=== PATIENT | male | born 1960 | race Two or more races ===

== ENCOUNTER 2020-06-27 08:37 | Outpatient (REF) | payer BC, SELFPAY ==
--- NOTE | 2020-06-27 08:52 | XR_ITS ---
EXAMINATION: XR KNEES, STANDING AP XR KNEE, RIGHT CLINICAL INFORMATION: Unilateral primary osteoarthritis, right knee COMPARISON: Radiographs right knee 11/08/2018 TECHNIQUE: Standing AP view of both knees is performed along with lateral and axial patella views of the right knee. FINDINGS: The right knee again shows narrowing medial knee joint compartment with marginal osteophyte medial tibial plateau. The axial view shows no patellofemoral joint narrowing or erosive change. There is no suprapatellar effusion. Hoffa's fat pad appears normal. There is spurring at the quadriceps insertion patella and some chronic mineralization in region of proximal lateral collateral ligament, likely related to remote injury. The left knee shows no definite joint narrowing. There is no erosive change or chondrocalcinosis. There is a small borderline benign exostosis from the medial side diaphyseal metaphyseal junction distal left femur. XR/XR knee standing BI IMPRESSION: RIGHT: Mild narrowing medial knee joint compartment and marginal spurring. No effusion. Spurring at quadriceps insertion patella. Benign mineralization in region of proximal lateral collateral ligament, likely old injury. LEFT: No joint narrowing.
--- NOTE | 2020-06-27 08:52 | XR_ITS ---
EXAMINATION: XR KNEES, STANDING AP XR KNEE, RIGHT CLINICAL INFORMATION: Unilateral primary osteoarthritis, right knee COMPARISON: Radiographs right knee 11/08/2018 TECHNIQUE: Standing AP view of both knees is performed along with lateral and axial patella views of the right knee. FINDINGS: The right knee again shows narrowing medial knee joint compartment with marginal osteophyte medial tibial plateau. The axial view shows no patellofemoral joint narrowing or erosive change. There is no suprapatellar effusion. Hoffa's fat pad appears normal. There is spurring at the quadriceps insertion patella and some chronic mineralization in region of proximal lateral collateral ligament, likely related to remote injury. The left knee shows no definite joint narrowing. There is no erosive change or chondrocalcinosis. There is a small borderline benign exostosis from the medial side diaphyseal metaphyseal junction distal left femur. XR/XR knee RT 2V IMPRESSION: RIGHT: Mild narrowing medial knee joint compartment and marginal spurring. No effusion. Spurring at quadriceps insertion patella. Benign mineralization in region of proximal lateral collateral ligament, likely old injury. LEFT: No joint narrowing.
== END 2020-06-27 08:38 | disposition home or self-care (01) ==
LOC: HO.XRAY 08:37
PROVIDERS: PCP Internal Medicine; Referring Provider Internal Medicine; Visit Provider Orthopaedic Surgery
DX: M17.11 Unilateral primary osteoarthritis, right knee (principal)
CPT/HCPCS: 73560; 73565

== ENCOUNTER 2020-06-27 09:51 | Outpatient (REF) | payer BC, SELFPAY ==
[2020-06-27 10:48] LABS: Estimated Average Glucose 169 mg/dL; Hemoglobin A1c % 7.5 %
== END 2020-06-27 09:52 | disposition home or self-care (01) ==
LOC: HO.10HDL 09:51
PROVIDERS: Visit Provider Orthopaedic Surgery
DX: Z01.812 Encounter for preprocedural laboratory examination (principal)
CPT/HCPCS: 83036

== ENCOUNTER 2020-07-01 09:46 | Outpatient (REF) | payer BC, SELFPAY ==
[2020-07-01 10:49] LABS: MANUAL DIFF FLAG NO
[2020-07-01 10:52] LABS: Basophils Percent Auto 0.7 % (0-2); Eosinophils Absolute Auto 0.2 X10*3/uL (0.0-0.4); Eosinophils Percent Auto 3.6 % (0-4); Hematocrit 43.6 % (42-52); Hemoglobin 14.1 g/dl (14.0-18.0); Imm Gran Abs Auto 0.03 X10*3/uL (0.00-0.03); Imm Gran Pct Auto 0.5 % (0.0-0.4); Lymphocytes Absolute Auto 1.9 X10*3/uL (1.2-4.9); Lymphocytes Percent Auto 32.9 % (20-40); Mean Corpuscular HGB Conc 32.3 g/dl (31.0-36.0); Mean Corpuscular Hemoglobin 26.6 pg (27.0-33.0); Mean Corpuscular Volume 82.1 fL (80-98); Mean Platelet Volume 11.2 fL (9.4-12.4); Monocytes Absolute Auto 0.5 X10*3/uL (0.1-1.2); Monocytes Percent Auto 7.6 % (2-11); Neutrophils Absolute Auto 3.2 X10*3/uL (2.0-8.3); Neutrophils Percent Auto 54.7 % (45-73); Platelet Count 221 X10*3/uL (160-400); Red Blood Count 5.31 X10*6/uL (4.60-5.80); Red Cell Distribution Width 14.1 % (11.0-16.0); White Blood Count 5.9 X10*3/uL (4.8-10.8)
[2020-07-01 11:00] LABS: Glucose Urine UA NEG (NEG); Leukocyte Esterase Urine NEG (NEG); Nitrite Urine NEG (NEG); Specific Gravity - Urine >= 1.030 (1.005-1.025); Urine Blood TRACE (NEG); Urine Ketones NEG (NEG); Urine Protein 2+ MG/DL (NEG-TRACE)
[2020-07-01 11:03] LABS: Appearance Urine CLEAR; Color Urine YELLOW
[2020-07-01 11:16] LABS: Estimated Average Glucose 166 mg/dL; Hemoglobin A1c % 7.4 %
[2020-07-01 12:02] LABS: TSH reflex Free T4 1.22 mIU/mL (0.32-4.0); Vitamin D 25-OH Total 38.4 ng/mL (>30)
[2020-07-01 12:03] LABS: RBC Urine 0 /HPF (0); Squamous Epithelial Cell Urine TRACE /LPF; WBC Urine 0-2 /HPF (0-4)
[2020-07-01 12:26] LABS: Alanine Aminotransferase 31 U/L (0-40); Albumin Level 4.3 g/dL (3.5-5.0); Alkaline Phosphatase 57 U/L (39-117); Anion Gap 14 (12-20); Aspartate Amino Transferase 15 U/L (5-37); Bilirubin Total 0.5 mg/dL (0.0-1.0); Blood Urea Nitrogen 20 mg/dL (9-16); Calcium 9.1 mg/dL (8.4-10.2); Carbon Dioxide 25 mmol/L (22-29); Chloride 106 mmol/L (96-108); Cholesterol 130 mg/dL; Estimated Glomerular Filt Rate > 60; Glucose Fasting 170 mg/dL (60-99); HDL Cholesterol 33 mg/dL; LDL Cholesterol Calculated 80 mg/dl; Potassium 4.7 mmol/l (3.3-5.1); Sodium 140 mmol/L (135-145); Total Protein 6.6 g/dL (6.5-8.0); Triglycerides 85 mg/dL
== END 2020-07-01 09:47 | disposition home or self-care (01) ==
LOC: HO.LAB 09:46
PROVIDERS: Visit Provider Internal Medicine
DX: E11.22 Type 2 diabetes mellitus with diabetic chronic kidney disease (principal); I12.9 Hypertensive chronic kidney disease with stage 1 through stage 4 chronic kidney disease, or unspecified chronic kidney disease; N18.2 Chronic kidney disease, stage 2 (mild); E78.5 Hyperlipidemia, unspecified; K21.9 Gastro-esophageal reflux disease without esophagitis; E55.9 Vitamin D deficiency, unspecified; E66.9 Obesity, unspecified
CPT/HCPCS: 36415; 80053; 80061; 81001; 81003; 82306; 83036; 84443; 85025

== ENCOUNTER → 2020-07-15 09:06 | Outpatient (BNVA) | payer BC, SELFPAY | PROVIDERS: PCP Internal Medicine; Referring Provider Internal Medicine; Visit Provider Internal Medicine Endocrinology, Diabetes & Metabolism | DX: Z76.89 Persons encountering health services in other specified circumstances (principal) ==

== ENCOUNTER → 2020-08-07 08:41 | Outpatient (BNVA) | payer BC, SELFPAY | PROVIDERS: PCP Internal Medicine; Visit Provider Orthopaedic Surgery | DX: Z76.89 Persons encountering health services in other specified circumstances (principal) ==

== ENCOUNTER 2020-08-15 08:37 | Outpatient (REF) | payer BC, SELFPAY ==
--- NOTE | 2020-08-15 08:49 | ECG_ITS ---
Test Reason : PREOP Blood Pressure : / mmHG Vent. Rate : 095 BPM Atrial Rate : 095 BPM P-R Int : 140 ms QRS Dur : 150 ms QT Int : 390 ms P-R-T Axes : 038 -84 033 degrees QTc Int : 490 ms Normal sinus rhythm Right bundle branch block Left anterior fascicular block Bifascicular block Abnormal ECG When compared with ECG of 02-NOV-2017 20:06, No significant change was found Referred By: Kenney Varela Electronically Signed By:DIAMOND HOLLAND
[2020-08-15 09:33] LABS: MANUAL DIFF FLAG NO
[2020-08-15 09:56] LABS: Basophils Absolute Auto 0.1 X10*3/uL (0.0-0.2); Basophils Percent Auto 0.7 % (0-2); Eosinophils Absolute Auto 0.2 X10*3/uL (0.0-0.4); Hematocrit 45.2 % (42-52); Hemoglobin 14.2 g/dl (14.0-18.0); Imm Gran Abs Auto 0.01 X10*3/uL (0.00-0.03); Imm Gran Pct Auto 0.1 % (0.0-0.4); Lymphocytes Absolute Auto 2.3 X10*3/uL (1.2-4.9); Lymphocytes Percent Auto 34.2 % (20-40); Mean Corpuscular HGB Conc 31.4 g/dl (31.0-36.0); Mean Corpuscular Hemoglobin 25.4 pg (27.0-33.0); Mean Platelet Volume 10.8 fL (9.4-12.4); Monocytes Absolute Auto 0.5 X10*3/uL (0.1-1.2); Monocytes Percent Auto 7.4 % (2-11); Neutrophils Absolute Auto 3.7 X10*3/uL (2.0-8.3); Neutrophils Percent Auto 54.6 % (45-73); Platelet Count 244 X10*3/uL (160-400); Red Blood Count 5.58 X10*6/uL (4.60-5.80); Red Cell Distribution Width 14.1 % (11.0-16.0); White Blood Count 6.8 X10*3/uL (4.8-10.8)
[2020-08-15 10:20] LABS: Estimated Average Glucose 163 mg/dL; Hemoglobin A1c % 7.3 %
[2020-08-15 10:41] LABS: Anion Gap 16 (12-20); Blood Urea Nitrogen 21 mg/dL (9-16); Carbon Dioxide 27 mmol/L (22-29); Chloride 100 mmol/L (96-108); Estimated Glomerular Filt Rate 56; Glucose Random 139 mg/dL (60-115); Potassium 4.6 mmol/l (3.3-5.1); Sodium 138 mmol/L (135-145)
== END 2020-08-15 08:38 | disposition home or self-care (01) ==
LOC: HO.LAB 08:37
PROVIDERS: PCP Internal Medicine; Visit Provider Orthopaedic Surgery
DX: Z01.812 Encounter for preprocedural laboratory examination (principal)
CPT/HCPCS: 36415; 80048; 83036; 85025; 93005

== ENCOUNTER 2020-08-19 15:06 | Outpatient (REF) | payer BC, SELFPAY | END 2020-08-19 15:07 | disposition home or self-care (01) | LOC: HO.LAB 15:06 | PROVIDERS: Physician Assistant; Visit Provider Internal Medicine | DX: Z20.828 Contact with and (suspected) exposure to other viral communicable diseases (principal) | CPT/HCPCS: U0003 ==

== ENCOUNTER 2020-08-23 14:56 | Outpatient (REF) | payer BC, SELFPAY | END 2020-08-23 14:57 | disposition home or self-care (01) | LOC: HO.LAB 14:56 | PROVIDERS: Visit Provider Internal Medicine | DX: Z20.828 Contact with and (suspected) exposure to other viral communicable diseases (principal) | CPT/HCPCS: C9803; U0003 ==

== ENCOUNTER 2020-08-28 14:09 | Outpatient (REF) | payer BC, SELFPAY | END 2020-08-28 14:10 | disposition home or self-care (01) | LOC: HO.LAB 14:09 | PROVIDERS: PCP Internal Medicine; Visit Provider Physician Assistant | DX: Z01.812 Encounter for preprocedural laboratory examination (principal) ==

== ENCOUNTER 2020-09-10 08:27 | Inpatient (IN) | payer BC, SELFPAY ==
[2020-09-05 11:45] VITALS: BP 158/86; PULSE 93; RESP 20; O2SAT 96; BMI 36.1
--- NOTE | 2020-09-05 12:34 | HO.ANESPROP2 ---
Documented by User: Bg Mendez MD 09/10/20 12:14 HPI - Anesthesia Eval Consult details Narrative: 59 M for Right TKR PMFSH Past Medical History Medical History Arthritis Back pain Benign essential hypertension Cardiovascular disease Chronic kidney disease (CKD), stage II (mild) Depression Diabetes type 2, controlled Diabetes type 2, uncontrolled Diabetic nephropathy Diabetic nephropathy associated with type 2 diabetes mellitus Diabetic polyneuropathy associated with type 2 diabetes mellitus Essential hypertension GERD without esophagitis Internal derangement of knee Lab test negative for COVID-19 virus Labral tear of hip, degenerative USP (current) use of insulin Lumbar spondylosis Neck pain Obesity (BMI 30-39.9) Primary osteoarthritis of right knee Primary osteoarthritis of right knee Pure hypercholesterolemia Rectal bleed Type 2 diabetes mellitus with diabetic chronic kidney disease Vitamin D deficiency Family History Family History Father Diabetes Hypertension Heart disease Mother Diabetes Surgical History Surgical History H/O colonoscopy History of appendectomy History of cardiac cath History of cholecystectomy History of esophagogastroduodenoscopy (EGD) History of fasciotomy Hx of foot surgery S/P right knee arthroscopy S/P TURP (~2015) Social History Social History Are you a primary palliative care physician to a significant other at home: No Do you presently have visiting nurse or other home services: No Alcohol intake: current Alcohol intake frequency: does not drink Smoking Status: Former smoker Tobacco Type: Cigarette Smoked in Last 30 Days: No Smoking Quit Date: 2011 Use of substances other than those prescribed or required for medical reasons: No Have you been hit, kicked, punched, or otherwise hurt by someone within the past year? 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 Allergy/AdvReac Type Severity Reaction Status Date / Time albiglutide [From TANZEUM] Allergy Intermediate NAUSEA & Verified 09/05/20 12:13 VOMITING, ABD PAIN Sulfa (Sulfonamide Allergy Intermediate RASH, Verified 09/05/20 12:13 Antibiotics) hives,shortness of breath empagliflozin AdvReac Intermediate abdominal Verified 08/28/20 14:13 [From Jardiance] pain Home Medications Medication Instructions Recorded Confirmed Type gabapentin 300 mg capsule 300 mg PO DAILY 06/25/20 09/05/20 History omeprazole 20 mg capsule,delayed 20 mg PO DAILY 06/25/20 09/05/20 History release blood sugar diagnostic #10 ea 07/10/20 08/19/20 History sumatriptan succinate 50 mg tablet 50 mg PO DAILY PRN 08/19/20 09/05/20 History Exam Exam Date and Time: September 05, 2020 1234 Height,Weight and Vital Signs: Height 5 ft 6 in Weight 101.4 kg Last Vital Signs Pulse 93 09/05/20 11:45 Resp 20 09/05/20 11:45 BP 158/86 H 09/05/20 11:45 Pulse Ox 96 09/05/20 11:45 Pertinent Lab Results Pertinent Lab Results: Laboratory Tests 08/28/20 14:55 Blood Type A Negative Antibody Screen NEGATIVE Airway Mallampati Class: I TM Dist: >3cm Neck ROM: Full Loose/Missing/Broken Teeth: No Heart: RRR Lungs: NL Other: AO Assessment and Plan Assessment Anesthesia Assessment: Anesthesia Plan Discussed, PAT Visit and Chart Reviewed Final Anesthetic Review NPO: Yes ASA Class: III Final Preanesthetic Review: No Changes in Pt Med Stat, Meds/Allgs Chart Reviewed, Consent Obtained/Reviewed and Anes Risks/Benef Reviewed Patient Risk: Intermediate Procedure Risk: Intermediate Anesthetic Plan Anesthetic Plan: MAC:, Spinal and Regional Block Disposition: Standard PACU Documented by User: Renetta Cadet 09/09/20 11:14 [facility] Past Medical History Medical History Arthritis Back pain Benign essential hypertension Cardiovascular disease Chronic kidney disease (CKD), stage II (mild) Depression Diabetes type 2, controlled Diabetes type 2, uncontrolled Diabetic nephropathy Diabetic nephropathy associated with type 2 diabetes mellitus Diabetic polyneuropathy associated with type 2 diabetes mellitus Essential hypertension GERD without esophagitis Internal derangement of knee Lab test negative for COVID-19 virus Labral tear of hip, degenerative USP (current) use of insulin Lumbar spondylosis Neck pain Obesity (BMI 30-39.9) Primary osteoarthritis of right knee Primary osteoarthritis of right knee Pure hypercholesterolemia Rectal bleed Type 2 diabetes mellitus with diabetic chronic kidney disease Vitamin D deficiency Family History Family History Father Diabetes Hypertension Heart disease Mother Diabetes Surgical History Surgical History H/O colonoscopy History of appendectomy History of cardiac cath History of cholecystectomy History of esophagogastroduodenoscopy (EGD) History of fasciotomy Hx of foot surgery S/P right knee arthroscopy S/P TURP (~2015) Social History Social History Are you a primary palliative care physician to a significant other at home: No Do you presently have visiting nurse or other home services: No Alcohol intake: current Alcohol intake frequency: does not drink Smoking Status: Former smoker Tobacco Type: Cigarette Smoked in Last 30 Days: No Smoking Quit Date: 2011 Use of substances other than those prescribed or required for medical reasons: No Have you been hit, kicked, punched, or otherwise hurt by someone within the past year? 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 Allergy/AdvReac Type Severity Reaction Status Date / Time albiglutide [From TANZEUM] Allergy Intermediate NAUSEA & Verified 09/05/20 12:13 VOMITING, ABD PAIN Sulfa (Sulfonamide Allergy Intermediate RASH, Verified 09/05/20 12:13 Antibiotics) hives,shortness of breath empagliflozin AdvReac Intermediate abdominal Verified 08/28/20 14:13 [From Jardiance] pain Home Medications Medication Instructions Recorded Confirmed Type gabapentin 300 mg capsule 300 mg PO DAILY 06/25/20 09/05/20 History omeprazole 20 mg capsule,delayed 20 mg PO DAILY 06/25/20 09/05/20 History release blood sugar diagnostic #10 ea 07/10/20 08/19/20 History sumatriptan succinate 50 mg tablet 50 mg PO DAILY PRN 08/19/20 09/05/20 History Exam Pertinent Lab Results Pertinent Lab Results: Laboratory Tests 08/15/20 08/15/20 08:55 08:55 WBC 6.8 Hgb 14.2 Hct 45.2 Plt Count 244 Sodium 138 Potassium 4.6 Chloride 100 Carbon Dioxide 27 BUN 21 H Creatinine 1.31
[2020-09-05 14:07] LABS: MRSA Nasal PCR NEGATIVE (Negative); SA Nasal PCR NEGATIVE (Negative)
[2020-09-10] VITALS (14 sets, daily range): BP systolic 98–152; BP diastolic 72–99; PULSE 76–107; RESP 12–20; TEMP 36.2–36.9; O2SAT 95–100
--- NOTE | 2020-09-10 07:39 | MHC.SHP ---
Pre-Procedural Eval Section A The patient is an INPATIENT: No Changes since office visit: Yes Patient answered all questions; No Cold of Flu in the past 2 weeks, No New Medical Problems and No Changes in Medication The History & Physical has been completed within 30 days and I have reviewed it.: Yes Section B Chief Complaint: Osteoarthritis of Right Knee Allergies: Allergies Allergy/AdvReac Type Severity Reaction Status Date / Time albiglutide [From TANZEUM] Allergy Intermediate NAUSEA & Verified 09/05/20 12:13 VOMITING, ABD PAIN Sulfa (Sulfonamide Allergy Intermediate RASH, Verified 09/05/20 12:13 Antibiotics) hives,shortness of breath empagliflozin AdvReac Intermediate abdominal Verified 08/28/20 14:13 [From Jardiance] pain Plan I have reviewed the history and physical and performed a pertinent physical examination on my patient. No changes have occurred unless specified.
[2020-09-10 09:48] LABS: COVID-19 Test Negative (Negative)
[2020-09-10 09:56] LABS: Glucose, Whole Blood 162 mg/dL (60-115)
[2020-09-10] MEDS: Lactated Ringers 1,000 ML 100 ML IVCONT (10:03)
[2020-09-10] MEDS: Gabapentin 600 MG TABLET PO (10:04)
[2020-09-10] MEDS: ceFAZolin Sodium/Dextrose,Iso 2 GM/50 ML PIGGYBACK IV ×2 (10:04→16:24)
--- NOTE | 2020-09-10 11:59 | P.BOP_ITS ---
Brief Operative Note Date of Service: 09/10/20 Pre-op diagnosis: right knee OA Post-op diagnosis: same Procedure: right TKA Implants: andrzej traithalon press fit a Surgeon: Kenney Varela MD Anesthesia: regional and spinal Furnace Converter: Nader Yadav Estimated blood loss (mL): 200 Tourniquet time (min): 0 IV fluids (mL): 1,400 Urine output (mL): 0 Pathology: other Condition: stable Disposition: PACU
--- NOTE | 2020-09-10 12:42 | OP_ITS ---
SURGEON: Kenney Varela MD INDICATIONS: This is a 59-year-old gentleman, who had arthroscopically identified osteoarthritis of the right knee, consented to undergo knee replacement. PREOPERATIVE DIAGNOSIS: Right knee osteoarthritis. POSTOPERATIVE DIAGNOSIS: Right knee osteoarthritis. PROCEDURE PERFORMED: Right total knee arthroplasty. ESTIMATED BLOOD LOSS: 200 mL. COMPLICATIONS: None known. ANESTHESIA: Spinal and regional. ASSISTANTS: CARLOS Moran. SPECIMENS: FLUIDS: 1400. PROCEDURE IN DETAIL: The patient was brought into the operating room, placed supine on the operative table and prepped and draped in standard sterile fashion. Time-out was called to identify proper site, proper procedure, proper surgeon. IV antibiotics per weight was administered. I began by making a midline incision down to the retinaculum. A medial parapatellar arthrotomy was performed and I everted the patella. Resected the fat pad, used [place]'s line to drill my intramedullary femoral guide and made my distal femoral cut in 5 degrees of valgus. I then sized a size 3 femur and made my anterior, posterior, and chamfer cuts. I then turned my attention to the tibia. A 2 mm of the medial side in line with the tibial crest. Of note, he had grade 3 and 4 changes scattered throughout the medial femoral condyle and the majority of the tibial plateau. I then made my tibial cut, protecting the posterior soft tissues and the PCL and trialed an extension block. I was happy with the extension and the stability. Therefore, I trialed a size 4 tibia. I was happy with the tracking, stability, and range, and the undersurface of the patella was then resurfaced, placing a 32A patella. The patella had grade 3 and 4 changes as well. Once this was done, I drilled my lug holes and prepared my tibial canal. I then irrigated copiously and after removing all extraneous soft tissue and both menisci, I placed my final tibial and femoral implants in standard fashion. I placed a bone plug in the femur prior to this. I then placed my tibia and trialed a 9 insert. I was happy with the 9. There was full range of motion came out through extension nicely. I then irrigated copiously, placed iodine and 1 g of local tranexamic acid and the layered closure was performed with mani on the skin. The patient was awakened from sedation and brought to recovery room in stable condition. There were no known complications. IMPLANTS: Junior Triathlon //9CR/32A. MD ARNOL Chapin/JODI / [id number]
--- NOTE | 2020-09-10 12:53 | XR_ITS ---
EXAMINATION: XR KNEE, RIGHT CLINICAL INFORMATION: Post knee replacement COMPARISON: Previous x-ray June 2020 TECHNIQUE: Two views of the right knee. FINDINGS: There is a new 3 component knee replacement in satisfactory position. Bone alignment is normal. No fracture or dislocation is seen. There is soft tissue calcification or ossification adjacent to the lateral femoral condyle and probable posttraumatic change that is unchanged from preoperative exams. There are postoperative changes to the soft tissues. There is evidence of mild atherosclerotic disease. XR/XR knee RT 2V IMPRESSION: Satisfactory appearance of right knee replacement.
[2020-09-10] MEDS: Sodium Chloride 0.45 % 1,000 ML 80 ML IVCONT (15:37)
[2020-09-10] MEDS: HYDROmorphone HCl 0.5 MG/0.5 ML SYRINGE 0.25 MG IVPUSH ×3 (16:19→20:12)
[2020-09-10 16:43] LABS: Glucose, Whole Blood 100 mg/dL (60-115)
--- NOTE | 2020-09-10 16:50 | P.CONIM_ITS ---
History of Present Illness Data of Consult Service Date: 09/10/20 <Gita Larkin NP - Last Filed: 09/10/20 18:14> Requesting physician: Kenney Varela <Gita Larkin NP - Last Filed: 09/10/20 18:14> Primary Care Provider: Aman Jefferson MD <Gita Larkin NP - Last Filed: 09/10/20 18:14> HPI Reason for consult: Medical management <Gita Larkin NP - Last Filed: 09/10/20 18:14> 59-year-old man with history of diabetes, hypertension, hyperlipidemia status post right total knee arthroplasty. Admitted by Orthopedic surgery. Surgery was unremarkable. Vital signs are stable. Patient has no acute medical complaints at this time. <Gita Larkin NP - Last Filed: 09/10/20 18:14> Review of Systems Review of Systems: Denies any recent fever chills or decrease in appetite respiratory denies any shortness of breath coverage production cardiovascular is adjustment of any PND or edema gastrointestinal denies any dysphagia abdominal pain nausea vomiting or diarrhea genitourinary denies any dysuria frequency or hematuria musculoskeletal denies any joint pain or swelling neuropsych denies any weakness or seizures all other systems reviewed are negative <Gita Larkin NP - Last Filed: 09/10/20 18:14> [facility] Medical History: Medical History Arthritis Back pain Benign essential hypertension Cardiovascular disease Chronic kidney disease (CKD), stage II (mild) Depression Diabetic nephropathy associated with type 2 diabetes mellitus Diabetic polyneuropathy associated with type 2 diabetes mellitus Essential hypertension GERD without esophagitis Lumbar spondylosis Neck pain Obesity (BMI 30-39.9) Pure hypercholesterolemia Rectal bleed Vitamin D deficiency <Gita Larkin NP - Last Filed: 09/10/20 18:14> Family History: Family History Father Diabetes Hypertension Heart disease Mother Diabetes <Gita Larkin NP - Last Filed: 09/10/20 18:14> Surgical History: Surgical History H/O colonoscopy History of appendectomy History of cardiac cath History of cholecystectomy History of esophagogastroduodenoscopy (EGD) History of fasciotomy Hx of foot surgery S/P right knee arthroscopy S/P TURP (~2015) <Gita Larkin NP - Last Filed: 09/10/20 18:14> Social History: Social History Are you a primary plant care worker to a significant other at home: No Do you presently have visiting nurse or other home services: No Alcohol intake: current Alcohol intake frequency: does not drink Smoking Status: Former smoker Tobacco Type: Cigarette Smoked in Last 30 Days: No Smoking Quit Date: 2011 Use of substances other than those prescribed or required for medical reasons: No Currently Displaying Signs/Symptoms of Drug Intoxication Withdrawal: No Have you been hit, kicked, punched, or otherwise hurt by someone within the past year? 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 <Gita Larkin NP - Last Filed: 09/10/20 18:14> Meds Allergies/Adverse reactions: Allergies Allergy/AdvReac Type Severity Reaction Status Date / Time albiglutide [From TANZEUM] Allergy Intermediate NAUSEA & Verified 09/05/20 12:13 VOMITING, ABD PAIN Sulfa (Sulfonamide Allergy Intermediate RASH, Verified 09/05/20 12:13 Antibiotics) hives,shortness of breath empagliflozin AdvReac Intermediate abdominal Verified 08/28/20 14:13 [From Jardiance] pain <Gita Larkin NP - Last Filed: 09/10/20 18:14> Home medications: Home Medications Medication Instructions Recorded Confirmed Type gabapentin 300 mg capsule 300 mg PO DAILY 06/25/20 09/05/20 History omeprazole 20 mg capsule,delayed 20 mg PO DAILY 06/25/20 09/05/20 History release blood sugar diagnostic #10 ea 07/10/20 08/19/20 History sumatriptan succinate 50 mg tablet 50 mg PO DAILY PRN 08/19/20 09/05/20 History <Gita Larkin NP - Last Filed: 09/10/20 18:14> Physical Exam Vital Signs and Narrative: Vital Signs: Last Vital Signs Temp 98.0 F 09/10/20 16:00 Pulse 79 09/10/20 16:00 Resp 17 09/10/20 16:00 BP 151/94 H 09/10/20 16:00 Pulse Ox 100 09/10/20 16:00 Body Mass Index 36.1 <Gita Larkin NP - Last Filed: 09/10/20 18:14> Appearing in no acute distress head is normocephalic atraumatic eyes pupils are PERRLA sclera is anicteric mouth throat mucous membranes are intact and moist lung sounds are clear to auscultation heart regular rate rhythm, clear S1, S2 positive bowel sounds, abdomen is soft, nontender neuro patient is alert x3, no focal deficits MSK, surgical incision, dressing clean, dry and intact. <Gita Larkin NP - Last Filed: 09/10/20 18:14> Results Labs CBC and Chem 7: : 09/11/20 05:50 09/11/20 05:50 <Gita Larkin NP - Last Filed: 09/10/20 18:14> Labs: Laboratory Results - last 24 hr 09/10/20 09/10/20 09/10/20 09:12 09:52 16:38 POC Glucose 162 H 100 COVID-19 (DANIELLE) Negative COVID-19 Clin Com See Note <Gita Larkin NP - Last Filed: 09/10/20 18:14> Imaging Radiologist's Impressions: Impressions Knee X-Ray 09/10/20 12:53 IMPRESSION: Satisfactory appearance of right knee replacement. 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 Right total knee arthroplasty. Management as per surgical team. Pain management. Diabetes mellitus. Sliding scale, ADA diet, continue metformin and insulin. GERD. Continue PPI. Hyperlipidemia. Continue statin. DVT prophylaxis mechanical compression boots Discussed with Dr. Sethi Full code <Gita Larkin NP - Last Filed: 09/10/20 18:14>
[2020-09-10] MEDS: Acetaminophen 325 MG TABLET 650 MG PO (17:05)
[2020-09-10] MEDS: oxyCODONE HCl Immed Release 5 MG TABLET PO ×2 (17:06→21:13)
--- NOTE | 2020-09-10 18:12 | PC.NURSE ---
Pt c/o pain 10/10 at 1600, 0.25 iv Dilaudid given at 1619 with no relief , 1700 PO oxycodone given with APAP with no relief . 1800 called , new order for 1 x dose of 0.25 iv Dilaudid given at 1808 Ice also applied to surgical site . will cont to monitor
[2020-09-10] MEDS: Celecoxib 200 MG CAPSULE PO (20:12)
[2020-09-10] MEDS: oxyCODONE HCl ER 10 MG TAB.ER.12H PO (20:12)
[2020-09-10] MEDS: 0.9 % Sodium Chloride Flush 3 ML SYRINGE IVFLUSH (20:13)
[2020-09-10 20:56] LABS: Glucose, Whole Blood 184 mg/dL (60-115)
[2020-09-11] VITALS (10 sets, daily range): BP systolic 136–163; BP diastolic 69–92; PULSE 67–113; RESP 16–20; TEMP 36.1–36.8; O2SAT 94–99; BMI 36.1
[2020-09-11] MEDS: HYDROmorphone HCl 0.5 MG/0.5 ML SYRINGE 0.25 MG IVPUSH ×2 (00:11→18:26)
[2020-09-11] MEDS: oxyCODONE HCl Immed Release 5 MG TABLET PO ×4 (03:17→16:07)
[2020-09-11] MEDS: Sodium Chloride 0.45 % 1,000 ML 80 ML IVCONT ×2 (03:18→14:25)
[2020-09-11] MEDS: Acetaminophen 325 MG TABLET 650 MG PO (03:18)
[2020-09-11 06:21] LABS: MANUAL DIFF FLAG NO
[2020-09-11 06:55] LABS: Basophils Percent Auto 0.2 % (0-2); Eosinophils Percent Auto 0.4 % (0-4); Hematocrit 40.7 % (42-52); Imm Gran Abs Auto 0.04 X10*3/uL (0.00-0.03); Imm Gran Pct Auto 0.4 % (0.0-0.4); Lymphocytes Percent Auto 18.5 % (20-40); Mean Corpuscular HGB Conc 31.9 g/dl (31.0-36.0); Mean Corpuscular Hemoglobin 25.5 pg (27.0-33.0); Mean Platelet Volume 10.5 fL (9.4-12.4); Monocytes Absolute Auto 1.3 X10*3/uL (0.1-1.2); Monocytes Percent Auto 11.8 % (2-11); Neutrophils Absolute Auto 7.3 X10*3/uL (2.0-8.3); Neutrophils Percent Auto 68.7 % (45-73); Platelet Count 272 X10*3/uL (160-400); Red Blood Count 5.09 X10*6/uL (4.60-5.80); White Blood Count 10.7 X10*3/uL (4.8-10.8)
[2020-09-11 07:01] LABS: Anion Gap 17 (12-20); Blood Urea Nitrogen 21 mg/dL (9-16); Calcium 8.3 mg/dL (8.4-10.2); Carbon Dioxide 24 mmol/L (22-29); Chloride 100 mmol/L (96-108); Creatinine Clr Calc Pharmacy 71.5; Estimated Glomerular Filt Rate 60; Glucose Fasting 195 mg/dL (60-99); Potassium 4.4 mmol/l (3.3-5.1); Sodium 137 mmol/L (135-145)
--- NOTE | 2020-09-11 07:41 | P.PNOP_ITS ---
Subjective Subjective Date of Service: 09/11/20 Interval history: POD1 s/p RTKA. Pt laying comfortably in bed. Has not yet gotten out of bed. States his pain was increased overnight but is controlled this morning. He will work with therapy this morning. No overnight events. Physical Exam Vital Signs: Vital Signs: Last Vital Signs Temp 97.0 F 09/11/20 07:32 Pulse 96 09/11/20 07:32 Resp 18 09/11/20 07:32 BP 163/83 H 09/11/20 07:32 Pulse Ox 96 09/11/20 07:32 Body Mass Index 36.1 Const: General: cooperative, healthy appearing and no acute distress Resp: Effort & Inspection: normal respiratory effort and able to speak in complete sentences Cardio: Rate: regular rate Peripheral pulses: Peripheral pulses 2+ throughout GI: Inspection: Yes normal to inspection Palpation (GI): Soft to palpation Skin: General skin exam: no rashes or lesions noted Extrem: Other: Dressing is clean, dry, and intact. No ecchymosis, redness, or drainage. NVI Progress Note: A&P Assessment and plan (1) Status post right knee replacement: Status: Acute Assessment and Plan: Continue pain mgmnt Begin Aspirin for dvt ppx begin PT for LT TKA Dispo planning-Pending PT eval, pain mgmnt Fall Risk Details Current Medications: Current Medications Generic Name Dose Route Start Last Admin Trade Name Freq PRN Reason Stop Dose Admin Acetaminophen 650 mg 09/10/20 12:14 Acetaminophen 325 Mg Tablet PO ONCE PRN Pain, Mild (Pain Scale 1-3) Acetaminophen 650 mg 09/10/20 14:55 09/11/20 03:18 Acetaminophen 325 Mg Tablet PO 650 mg Q6H PRN Administration Pain, Mild (Pain Scale 1-3) Celecoxib 200 mg 09/10/20 21:00 09/10/20 20:12 Celecoxib 200 Mg Capsule PO 200 mg BID FRANCE Administration Hydromorphone HCl 0.25 mg 09/10/20 12:14 Hydromorphone Hcl 0.5 Mg/0.5 Ml Syringe IVPUSH Q5M PRN Pain, Severe (Pain Scale 7-10) Hydromorphone HCl 0.25 mg 09/10/20 14:55 09/11/20 00:11 Hydromorphone Hcl 0.5 Mg/0.5 Ml Syringe IVPUSH 0.25 mg Q4H PRN Administration Pain, Severe (Pain Scale 7-10) Sodium Chloride 1,000 mls @ 80 mls/hr 09/10/20 14:55 09/11/20 03:18 IVCONT 80 mls/hr .[id number] FR[place] Administration Naloxone HCl 0.2 mg 09/10/20 14:55 Naloxone Hcl 0.4 Mg/Ml Vial IVPUSH Q2M PRN Excessive sedation or RR < 8 Ondansetron HCl 4 mg 09/10/20 12:14 Ondansetron Hcl 4 Mg/2 Ml Vial IVPUSH ONCE PRN Nausea and Vomiting Ondansetron HCl 4 mg 09/10/20 14:55 Ondansetron Hcl 4 Mg/2 Ml Vial IVPUSH Q8H PRN Nausea and Vomiting Oxycodone HCl 5 mg 09/10/20 12:14 Oxycodone Hcl Immed Release 5 Mg Tablet PO ONCE PRN Pain, Moderate (Pain Scale 4-6 Oxycodone HCl 5 mg 09/10/20 14:55 09/11/20 07:36 Oxycodone Hcl Immed Release 5 Mg Tablet PO 5 mg Q4H PRN Administration Pain, Moderate (Pain Scale 4-6 Oxycodone HCl 10 mg 09/10/20 21:00 09/10/20 20:12 Oxycodone Hcl Er 10 Mg Tab.Er.12h PO 10 mg BID [place] Administration Senna 17.2 mg 09/10/20 14:55 Sennosides 8.6 Mg Tablet PO BEDTIME PRN Constipation Sodium Chloride 3 ml 09/10/20 16:00 09/11/20 07:36 0.9 % Sodium Chloride Flush 3 Ml Syringe IVFLUSH Not Given QSHIFT [facility] Time Spent With Patient Time: Total time spent is greater than 50% in coordination of care (as documented) at patient's floor/unit and/or counseling patient: Time with patient: less than 15 minutes
--- NOTE | 2020-09-11 08:56 | HO.POSTANES ---
Post Anesthesia Evaluation Post Anesthesia Evaluation Vital Signs: Vital Signs Temp Pulse Resp BP Pulse Ox 09/11/20 08:23 96 163/83 H 96 09/11/20 07:32 97.0 F 96 18 163/83 H 96 09/11/20 04:00 97.6 F 96 20 148/92 H 94 09/11/20 00:11 20 09/10/20 22:55 98.1 F 107 H 20 150/99 H 97 Anesthesia: Spinal and Nerve Block Mental Status: Awake Pain Control: Satisfactory Nausea/Vomiting: None Hydration: Adequate Anesthesia-Related Issues: No Anes. Related Issues
[2020-09-11] MEDS: oxyCODONE HCl ER 10 MG TAB.ER.12H PO ×2 (09:18→20:58)
[2020-09-11] MEDS: Celecoxib 200 MG CAPSULE PO ×2 (09:18→20:58)
--- NOTE | 2020-09-11 10:24 | MHC.CM.PN ---
Addendum entered by Vidhya Martinez RN 09/11/20 15:35: PT ACCEPTED AT [facility] FOR HOME PT, POSSIBLE NEED FOR LONG-TERM AND HOME PT. Original Note: CM MET W/PT WHO IS A&O, PT COMPLETELY INDEPENDENT AT HOME OTHER THAN USING CANE, PT LIVES WITH PARTNER WHO CAN ASSIST PT AT HOME AFTER DISCHARGE. PT DOES HAVE RED WHEELED WALKER WITH SEAT WITH HIM IN HOSPITAL ROOM. PT REPORTS HE DOES HAVE AN HCP AND COPY WAS REQUESTED. PT VERIEFIED PCP [facility] AND [facility]. DISCHARGE PLAN HOME VS HOME W/ HOME PT, FAMILY TO TRANSPORT HCP: ARMINDA LUQUE (SISTER) [phone], [place] [phone] PT UNSURE OF WHICH IS HCP AND ALTERNATE
--- NOTE | 2020-09-11 10:41 | HO.PM.IMPN ---
Subjective Subjective Date of Service: 09/11/20 Interval History: Seen in follow-up for medical consultation in the setting of right knee replacement. Doing well has little pain and already ambulating. Review of Systems No fever no shortness of breath, little pain in the knee. Physical Exam Vital Signs: Vital Signs: Last Vital Signs Temp 97.0 F 09/11/20 07:32 Pulse 96 09/11/20 08:23 Resp 18 09/11/20 07:32 BP 163/83 H 09/11/20 08:23 Pulse Ox 96 09/11/20 08:23 Body Mass Index 36.1 General: AO X 3, no acute distress Resp: Normal respiratory effort. CVS: S1,S2,RRR GI: +BS, NT, no distention Skin: No rash, wound dry clean and intact. Neuro: motor grossly intact Psych: appropriate affect Objective Data Current Medications Generic Name Dose Route Start Last Admin Trade Name Freq PRN Reason Stop Dose Admin Acetaminophen 650 mg 09/10/20 12:14 Acetaminophen 325 Mg Tablet PO ONCE PRN Pain, Mild (Pain Scale 1-3) Acetaminophen 650 mg 09/10/20 14:55 09/11/20 03:18 Acetaminophen 325 Mg Tablet PO 650 mg Q6H PRN Administration Pain, Mild (Pain Scale 1-3) Aspirin 325 mg 09/11/20 23:00 Aspirin 325 Mg Tablet PO BID FRANCE Celecoxib 200 mg 09/10/20 21:00 09/11/20 09:18 Celecoxib 200 Mg Capsule PO 200 mg BID FRANCE Administration Hydromorphone HCl 0.25 mg 09/10/20 12:14 Hydromorphone Hcl 0.5 Mg/0.5 Ml Syringe IVPUSH Q5M PRN Pain, Severe (Pain Scale 7-10) Hydromorphone HCl 0.25 mg 09/10/20 14:55 09/11/20 00:11 Hydromorphone Hcl 0.5 Mg/0.5 Ml Syringe IVPUSH 0.25 mg Q4H PRN Administration Pain, Severe (Pain Scale 7-10) Sodium Chloride 1,000 mls @ 80 mls/hr 09/10/20 14:55 09/11/20 03:18 IVCONT 80 mls/hr .[id number] FRANCE Administration Naloxone HCl 0.2 mg 09/10/20 14:55 Naloxone Hcl 0.4 Mg/Ml Vial IVPUSH Q2M PRN Excessive sedation or RR < 8 Ondansetron HCl 4 mg 09/10/20 12:14 Ondansetron Hcl 4 Mg/2 Ml Vial IVPUSH ONCE PRN Nausea and Vomiting Ondansetron HCl 4 mg 09/10/20 14:55 Ondansetron Hcl 4 Mg/2 Ml Vial IVPUSH Q8H PRN Nausea and Vomiting Oxycodone HCl 5 mg 09/10/20 12:14 Oxycodone Hcl Immed Release 5 Mg Tablet PO ONCE PRN Pain, Moderate (Pain Scale 4-6 Oxycodone HCl 5 mg 09/10/20 14:55 09/11/20 07:36 Oxycodone Hcl Immed Release 5 Mg Tablet PO 5 mg Q4H PRN Administration Pain, Moderate (Pain Scale 4-6 Oxycodone HCl 10 mg 09/10/20 21:00 09/11/20 09:18 Oxycodone Hcl Er 10 Mg Tab.Er.12h PO 10 mg BID FRACNE Administration Senna 17.2 mg 09/10/20 14:55 Sennosides 8.6 Mg Tablet PO BEDTIME PRN Constipation Sodium Chloride 3 ml 09/10/20 16:00 09/11/20 07:36 0.9 % Sodium Chloride Flush 3 Ml Syringe IVFLUSH Not Given QSHIFT [facility] Labs CBC & Chem 7: 09/11/20 05:50 09/11/20 05:50 Assessment and Plan (1) Type 2 diabetes mellitus with diabetic chronic kidney disease: Status: Acute Assessment and Plan: 59-year-old man status post right total knee arthroplasty. Right total knee arthroplasty. Management as per surgical team. Pain management. Diabetes mellitus. Sliding scale, Metformin GERD. Continue PPI. Hyperlipidemia. Continue statin. HTN--restart Losartan DVT prophylaxis mechanical compression boots, ASA
[2020-09-11 11:42] LABS: Glucose, Whole Blood 239 mg/dL (60-115)
[2020-09-11] MEDS: metFORMIN HCl ER 500 MG TAB.ER.24H 1000 MG PO ×2 (11:50→20:58)
[2020-09-11] MEDS: Omeprazole 20 MG CAPSULE.DR PO (11:50)
[2020-09-11] MEDS: SITagliptin Phosphate 100 MG TABLET PO (11:54)
[2020-09-11 17:01] LABS: Glucose, Whole Blood 210 mg/dL (60-115)
[2020-09-11 20:48] LABS: Glucose, Whole Blood 222 mg/dL (60-115)
[2020-09-11] MEDS: Amitriptyline HCl 25 MG TABLET PO (20:58)
[2020-09-12] MEDS: Aspirin 325 MG TABLET PO ×2 (00:35→08:37)
[2020-09-12 03:51] VITALS: BP 153/97; PULSE 102; RESP 20; TEMP 36.7; O2SAT 94
[2020-09-12 06:44] LABS: MANUAL DIFF FLAG NO
[2020-09-12 07:13] LABS: Basophils Percent Auto 0.3 % (0-2); Eosinophils Absolute Auto 0.1 X10*3/uL (0.0-0.4); Hematocrit 41.1 % (42-52); Hemoglobin 13.3 g/dl (14.0-18.0); Imm Gran Abs Auto 0.04 X10*3/uL (0.00-0.03); Imm Gran Pct Auto 0.4 % (0.0-0.4); Lymphocytes Absolute Auto 1.6 X10*3/uL (1.2-4.9); Lymphocytes Percent Auto 15.1 % (20-40); Mean Corpuscular HGB Conc 32.4 g/dl (31.0-36.0); Mean Corpuscular Hemoglobin 25.8 pg (27.0-33.0); Mean Corpuscular Volume 79.7 fL (80-98); Mean Platelet Volume 10.3 fL (9.4-12.4); Monocytes Absolute Auto 1.3 X10*3/uL (0.1-1.2); Monocytes Percent Auto 12.8 % (2-11); Neutrophils Absolute Auto 7.3 X10*3/uL (2.0-8.3); Neutrophils Percent Auto 70.4 % (45-73); Platelet Count 233 X10*3/uL (160-400); Red Blood Count 5.16 X10*6/uL (4.60-5.80); Red Cell Distribution Width 14.4 % (11.0-16.0); White Blood Count 10.3 X10*3/uL (4.8-10.8)
[2020-09-12 07:28] LABS: Anion Gap 15 (12-20); Blood Urea Nitrogen 12 mg/dL (9-16); Calcium 8.4 mg/dL (8.4-10.2); Carbon Dioxide 27 mmol/L (22-29); Chloride 98 mmol/L (96-108); Creatinine Clr Calc Pharmacy 79.9; Estimated Glomerular Filt Rate > 60; Glucose Fasting 222 mg/dL (60-99); Potassium 4.7 mmol/l (3.3-5.1); Sodium 135 mmol/L (135-145)
[2020-09-12 07:38] VITALS: BP 148/80; PULSE 121; RESP 15; TEMP 36.7; O2SAT 95
[2020-09-12 07:50] LABS: Glucose, Whole Blood 233 mg/dL (60-115)
[2020-09-12 08:08] VITALS: BP 148/80; O2SAT 95
--- NOTE | 2020-09-12 08:31 | W.MHC.F2F ---
Service Date Service Date: 09/12/20 Reasons for Services Signs and symptoms assessed: right knee pain and weakness , poor balance. Reason for senior living: postoperative assessment and/or care Reason for physical therapy: home safety and mobility, therapeutic exercises, restore joint function, gait/transfer training and ADL training Reason for occupational therapy: home safety and mobility, therapeutic exercises, restore joint function, gait/transfer training and ADL training MD Overseeing Care: Kenney Varela Homebound: Leaving the home is medically contraindicated at this time without the asist of a device and/or another person due th the listed conditions above and below. Reason homebound: unsteady gait / fall risk, pain with ambulation, poor balance / fall risk and unable to drive Homebound supporting statement: Pt. is considered home bound due to recent surgery. Unable to drive, poor balance, poor gait mechanics. Certification: Based on the above findings, I certify that this patient is confined to the home and needs intermittent senior living care, physical therapy and/or speech therapy, or continues to need occupational therapy. The patient is under my care, and I have initiated the establishment of the plan of care. The patient will be followed by a physician who will periodically review the plan of care.
[2020-09-12] MEDS: Celecoxib 200 MG CAPSULE PO (08:37)
[2020-09-12] MEDS: 0.9 % Sodium Chloride Flush 3 ML SYRINGE IVFLUSH (08:37)
[2020-09-12] MEDS: oxyCODONE HCl ER 10 MG TAB.ER.12H PO (08:37)
[2020-09-12] MEDS: Omeprazole 20 MG CAPSULE.DR PO (08:37)
[2020-09-12] MEDS: metFORMIN HCl ER 500 MG TAB.ER.24H 1000 MG PO (08:37)
[2020-09-12] MEDS: Gabapentin 300 MG CAPSULE PO (08:37)
[2020-09-12] MEDS: Atorvastatin Calcium 40 MG TABLET PO (08:37)
[2020-09-12] MEDS: SITagliptin Phosphate 100 MG TABLET PO (08:37)
[2020-09-12 08:38] VITALS: BP 148/80; PULSE 121
[2020-09-12] MEDS: Losartan Potassium 50 MG TABLET PO (08:38)
--- NOTE | 2020-09-12 12:52 | HO.PM.IMPN ---
Subjective Subjective Date of Service: 09/12/20 Interval History: Seen in follow-up for medical consultation in the setting of right knee replacement. Doing well has little pain and already ambulating and feels ready to go home today Review of Systems No fever no shortness of breath, little pain in the knee. Physical Exam Vital Signs: Vital Signs: Last Vital Signs Temp 98.0 F 09/12/20 07:38 Pulse 121 H 09/12/20 08:38 Resp 15 09/12/20 07:38 BP 148/80 H 09/12/20 08:38 Pulse Ox 95 09/12/20 08:08 Body Mass Index 36.1 General: AO X 3, no acute distress Resp: Normal respiratory effort CVS: S1,S2,RRR GI: +BS, NT, no distention Skin: No rash Neuro: motor grossly intact Psych: appropriate affect Objective Data Labs CBC & Chem 7: 09/12/20 06:24 09/12/20 06:24 Assessment and Plan (1) Type 2 diabetes mellitus with diabetic chronic kidney disease: Status: Acute Assessment and Plan: 59-year-old man status post right total knee arthroplasty. Right total knee arthroplasty. Management as per surgical team. Pain management. Diabetes mellitus. Sliding scale, Metformin GERD. Continue PPI. Hyperlipidemia. Continue statin. HTN--restart Losartan Note increase in heart rate likely relate to activity or pain DVT prophylaxis mechanical compression boots, ASA
--- NOTE | 2020-09-13 15:07 | P.DS_ITS ---
DS: Providers Provider Date of Service: 09/13/20 Date of admission: 09/10/20 08:27 Primary care physician: Aman Jefferson MD Consults: 09/10/20 14:55 Consult to Hospitalist Routine Consulting Provider: Hospitalist Reason for consultation: post op routine consult DS: Diagnosis Discharge Diagnosis (1) Status post right knee replacement: Status: Acute Problem details: 59 year old male presented to the office for rt knee pain. X-ray exam revealed osteoarthritis. He has tried and failed all conservative treatment and therefore elected to proceed with a rt total knee arthroplasty. DS: Medications Discharge Medications Home Medications: Home Medications Medication Instructions Recorded Confirmed gabapentin 300 mg capsule 300 mg PO DAILY 06/25/20 09/05/20 omeprazole 20 mg capsule,delayed 20 mg PO DAILY 06/25/20 09/05/20 release blood sugar diagnostic #10 ea 07/10/20 08/19/20 sumatriptan succinate 50 mg tablet 50 mg PO DAILY PRN 08/19/20 09/05/20 Previous Rx's Medication Instructions Recorded ergocalciferol (vitamin D2) 1,250 1,250 mcg PO QWEEK 30 Days #5 cap 07/10/20 mcg (50,000 unit) capsule amitriptyline 25 mg tablet 25 mg PO BEDTIME #30 tab 07/11/20 insulin aspart U-100 100 unit/mL See Rx Instructions SUBCUT TID 30 07/15/20 (3 mL) subcutaneous pen Days #30 ml insulin degludec 200 unit/mL (3 55 unit SUBCUT DAILY 30 Days #9 ml 07/15/20 mL) subcutaneous pen atorvastatin 40 mg tablet 40 mg PO DAILY #30 tab 08/14/20 losartan 50 mg tablet 50 mg PO DAILY #30 tab 08/14/20 metformin 500 mg tablet,extended 1,000 mg PO BID #120 tab 08/14/20 release 24 hr sitagliptin 100 mg tablet 100 mg PO DAILY #30 tab 08/14/20 acetaminophen 650 mg PO Q6H PRN 30 Days #240 tab 09/12/20 aspirin 325 mg PO BID 14 Days #28 tab 09/12/20 oxycodone 5 mg PO Q4H PRN 7 Days #42 tab 09/12/20 sennosides [Senna Lax] 17.2 mg PO BEDTIME PRN 30 Days #60 09/12/20 tab DS: Summary Hospital Course Hospital Course: The patient underwent a successful right total knee arthroplasty, was transferred to PACU and then to the floor to recover. During their stay, their vitals were stable, afebrile at 98.0 . Labs were unremarkable, H/H 13.3/41.1. POD 1 he was started on ASA for DVT ppx, they also received p.t. services twice a day. Prior to discharge, their dressing was change, incision clean dry and intact, new Aquacel dressing applied and the plan was to be discharged home with VNA services,. Status at Discharge Functional status at discharge: uses cane/walker Time Spent with Patient Time attestation: Total time spent providing and/or coordinating discharge services: Discharge coordination time: Greater than 30 minutes Physical Exam Vital Signs: Vital Signs: Last Vital Signs Temp 98.0 F 09/12/20 07:38 Pulse 121 H 09/12/20 08:38 Resp 15 09/12/20 07:38 BP 148/80 H 09/12/20 08:38 Pulse Ox 95 09/12/20 08:08 Body Mass Index 36.1 Const: General: cooperative, healthy appearing and no acute distress Resp: Effort & Inspection: normal respiratory effort and able to speak in complete sentences Cardio: Rate: regular rate Peripheral pulses: Peripheral pulses 2+ throughout GI: Inspection: Yes normal to inspection Palpation (GI): Soft to palpation Skin: General skin exam: no rashes or lesions noted Extrem: Other: Rt knee no ecchymosis, redness, drainage. Incision is clean, dry and mani intact. Aquacel dressing changed. NVI. DS: Data Data Completed and Pending Completed studies during hospitalization [Text1]: Pending at discharge 09/10/20 11:53 Surgical [PTH] Routine Procedures Replacement of Right Knee Joint with Synthetic Substitute, Uncemented, Open Approach (09/10/20) Labs on day of discharge: Laboratory Tests 08/28/20 09/05/20 09/10/20 14:55 12:30 09:12 WBC RBC Hgb Hct MCV MCH MCHC RDW Plt Count MPV Immature Gran % (Auto) Neut % (Auto) Lymph % (Auto) [place] % (Auto) Eos % (Auto) Baso % (Auto) Lymph # (Auto) [place] # (Auto) Eos # (Auto) Baso # (Auto) Abs Immat Gran (auto) Absolute Neuts (auto) Absolute Nucleated RBC Nucleated RBC % (auto) Sodium Potassium Chloride Carbon Dioxide Anion Gap BUN Creatinine Estim Creat Clear Calc Estimated GFR POC Glucose Fasting Glucose Calcium Nasal Screen MRSA (PCR) NEGATIVE Nasal S. aureus Screen NEGATIVE Nasal MRSA/S.aureus Interp SEE NOTE COVID-19 (DANIELLE) Negative COVID-19 Clin Com See Note Blood Type A Negative Antibody Screen NEGATIVE 09/10/20 09/10/20 09/10/20 09:52 16:38 20:49 WBC RBC Hgb Hct MCV MCH MCHC RDW Plt Count MPV Immature Gran % (Auto) Neut % (Auto) Lymph % (Auto) [place] % (Auto) Eos % (Auto) Baso % (Auto) Lymph # (Auto) [place] # (Auto) Eos # (Auto) Baso # (Auto) Abs Immat Gran (auto) Absolute Neuts (auto) Absolute Nucleated RBC Nucleated RBC % (auto) Sodium Potassium Chloride Carbon Dioxide Anion Gap BUN Creatinine Estim Creat Clear Calc Estimated GFR POC Glucose 162 H 100 184 H Fasting Glucose Calcium Nasal Screen MRSA (PCR) Nasal S. aureus Screen Nasal MRSA/S.aureus Interp COVID-19 (DANIELLE) COVID-19 Clin Com Blood Type Antibody Screen 09/11/20 09/11/20 09/11/20 05:50 05:50 11:35 WBC 10.7 RBC 5.09 Hgb 13.0 L Hct 40.7 L MCV 80.0 MCH 25.5 L MCHC 31.9 RDW 14.0 Plt Count 272 MPV 10.5 Immature Gran % (Auto) 0.4 Neut % (Auto) 68.7 Lymph % (Auto) 18.5 L [place] % (Auto) 11.8 H Eos % (Auto) 0.4 Baso % (Auto) 0.2 Lymph # (Auto) 2.0 [place] # (Auto) 1.3 H Eos # (Auto) 0.0 Baso # (Auto) 0.0 Abs Immat Gran (auto) 0.04 H Absolute Neuts (auto) 7.3 Absolute Nucleated RBC 0.000 Nucleated RBC % (auto) 0.0 Sodium 137 Potassium 4.4 Chloride 100 Carbon Dioxide 24 Anion Gap 17 BUN 21 H Creatinine 1.24 Estim Creat Clear Calc 71.5 Estimated GFR 60 POC Glucose 239 H Fasting Glucose 195 H Calcium 8.3 L D Nasal Screen MRSA (PCR) Nasal S. aureus Screen Nasal MRSA/S.aureus Interp COVID-19 (DANIELLE) COVID-19 [employer] Com Blood Type Antibody Screen 09/11/20 09/11/20 09/12/20 16:57 20:42 06:24 WBC 10.3 RBC 5.16 Hgb 13.3 L Hct 41.1 L MCV 79.7 L MCH 25.8 L MCHC 32.4 RDW 14.4 Plt Count 233 MPV 10.3 Immature Gran % (Auto) 0.4 Neut % (Auto) 70.4 Lymph % (Auto) 15.1 L [place] % (Auto) 12.8 H Eos % (Auto) 1.0 Baso % (Auto) 0.3 Lymph # (Auto) 1.6 [place] # (Auto) 1.3 H Eos # (Auto) 0.1 Baso # (Auto) 0.0 Abs Immat Gran (auto) 0.04 H Absolute Neuts (auto) 7.3 Absolute Nucleated RBC 0.000 Nucleated RBC % (auto) 0.0 Sodium Potassium Chloride Carbon Dioxide Anion Gap BUN Creatinine Estim Creat Clear Calc Estimated GFR POC Glucose 210 H 222 H Fasting Glucose Calcium Nasal Screen MRSA (PCR) Nasal S. aureus Screen Nasal MRSA/S.aureus Interp COVID-19 (DANIELLE) COVID-19 [employer] Com Blood Type Antibody Screen 09/12/20 09/12/20 06:24 07:35 WBC RBC Hgb Hct MCV MCH MCHC RDW Plt Count MPV Immature Gran % (Auto) Neut % (Auto) Lymph % (Auto) [place] % (Auto) Eos % (Auto) Baso % (Auto) Lymph # (Auto) [place] # (Auto) Eos # (Auto) Baso # (Auto) Abs Immat Gran (auto) Absolute Neuts (auto) Absolute Nucleated RBC Nucleated RBC % (auto) Sodium 135 Potassium 4.7 Chloride 98 Carbon Dioxide 27 Anion Gap 15 BUN 12 Creatinine 1.11 Estim Creat Clear Calc 79.9 Estimated GFR > 60 POC Glucose 233 H Fasting Glucose 222 H Calcium 8.4 Nasal Screen MRSA (PCR) Nasal S. aureus Screen Nasal MRSA/S.aureus Interp COVID-19 (DANIELLE) COVID-19 Clin Com Blood Type Antibody Screen Discharge Plan Discharge Patient Disposition: Home Health Service Referrals: [facility] [Outside] (LONGTERM FOR POST OPERATIVE ASSESSMENT AND CARE AND HOME PHYSICAL THERAPY PLEASE CALL ABOVE NUMBER IF YOU HAVE NOT HEARD FROM THEM BY NOON ON 09/12/20) Nader Yadav PA-C [Physician [employer] [facility]] - (2 wk s/p surgery) Discharge Medications: New acetaminophen 325 mg Tablet 650 mg PO Q6H PRN (Reason: Pain, Mild (Pain Scale 1-3)) 30 Days Qty: 240 RF: 0 aspirin 325 mg Tablet 325 mg PO BID 14 Days Qty: 28 RF: 0 sennosides [Senna Lax] 8.6 mg Tablet 17.2 mg PO BEDTIME PRN (Reason: Constipation) 30 Days Qty: 60 RF: 0 oxycodone 5 mg Tablet 5 mg PO Q4H PRN (Reason: Pain, Moderate (Pain Scale 4-6) 7 Days Qty: 42 RF: 0 Continued ergocalciferol (vitamin D2) 1,250 mcg (50,000 unit) capsule 1,250 mcg PO QWEEK 30 Days Qty: 5 RF: 12 amitriptyline 25 mg tablet 25 mg PO BEDTIME Qty: 30 RF: 0 atorvastatin 40 mg tablet 40 mg PO DAILY Qty: 30 RF: 4 sitagliptin [Januvia] 100 mg tablet 100 mg PO DAILY Qty: 30 RF: 4 losartan 50 mg tablet 50 mg PO DAILY Qty: 30 RF: 4 metformin 500 mg tablet extended release 24 hr 1,000 mg PO BID Qty: 120 RF: 4 sumatriptan succinate 50 mg tablet 50 mg PO DAILY PRN (Reason: Headache) RF: 0 (DME) blood sugar diagnostic Strip See Rx Instructions ea Not Applicable TID Qty: 10 RF: 0 Tresiba FlexTouch U-200 200 unit/mL (3 mL) insulin pen 55 unit subcut DAILY 30 Days Qty: 9 RF: 6 insulin aspart U-100 [Novolog Flexpen U-100 Insulin] 100 unit/mL (3 mL) insulin pen See Rx Instructions subcut TID 30 Days Qty: 30 RF: 6 omeprazole 20 mg capsule,delayed release(DR/EC) 20 mg PO DAILY RF: 0 gabapentin 300 mg capsule 300 mg PO DAILY RF: 0 Discharge Orders: Discharge Order (Routine); Ordered 09/12/20 Ordered By: Nader Yadav Diet: regular diet Activity on Discharge: Use cane or walker Discharge Date/Time: 09/12/20 10:20 Activity Restrictions/Additional Instructions: * Physical Therapy for ROM 0-120, quad strength, gait training . Use walker for ambulation * Limit stair climbing, No shower, No tub bath, No driving * Continue aspirin x2 weeks * Keep Aquacel dressing clean, dry and intact. * Follow up with orthopedics in 2 weeks Visit Report Forms: Patient Portal Discharge page Care Plan Goals: Restore function of right knee Health Concerns: None Plan of Treatment: Physical Therapy Pain management DVT prophylaxis
== END 2020-09-12 10:20 | disposition home health service (06) | DRG 302 ==
LOC: HO.SSSA 08:30 → HO.S3 13:56
PROVIDERS: Physician Assistant; Admitting Provider Orthopaedic Surgery; PCP Internal Medicine; Visit Provider Orthopaedic Surgery
PROC: 0SRC0JA Replacement of Right Knee Joint with Synthetic Substitute, Uncemented, Open Approach (ICD-10-PCS; CPT 27447; principal; 2020-09-10 10:30)
DX: M17.11 Unilateral primary osteoarthritis, right knee (principal); E11.22 Type 2 diabetes mellitus with diabetic chronic kidney disease; E78.5 Hyperlipidemia, unspecified; K21.9 Gastro-esophageal reflux disease without esophagitis; I12.9 Hypertensive chronic kidney disease with stage 1 through stage 4 chronic kidney disease, or unspecified chronic kidney disease; N18.2 Chronic kidney disease, stage 2 (mild); Z20.828 Contact with and (suspected) exposure to other viral communicable diseases; Z88.2 Allergy status to sulfonamides; Z79.4 Long term (current) use of insulin; Z79.899 Other long term (current) drug therapy
CPT/HCPCS: 36415; 73560; 80048; 82947; 85025; 86850; 86900; 86901; 87635; 87640; 87641; 88305; 88311; 97110; 97116; 97162; C1776; J0690; J1170; J2250

== ENCOUNTER → 2020-09-26 14:05 | Outpatient (BNVA) | payer BC, SELFPAY | PROVIDERS: Visit Provider Physician Assistant ==

== ENCOUNTER → 2020-10-04 09:54 | Outpatient (BNVA) | payer BC, SELFPAY | PROVIDERS: PCP Internal Medicine; Visit Provider Physician Assistant ==

== ENCOUNTER → 2020-10-15 09:51 | Outpatient (BNVA) | payer BC, SELFPAY | PROVIDERS: PCP Internal Medicine; Visit Provider Internal Medicine Endocrinology, Diabetes & Metabolism ==

== ENCOUNTER → 2020-10-28 09:49 | Outpatient (BNVA) | payer BC, SELFPAY | PROVIDERS: PCP Internal Medicine; Visit Provider Orthopaedic Surgery ==

== ENCOUNTER 2020-11-01 09:00 | Outpatient (REF) | payer BC, SELFPAY ==
[2020-11-01 09:55] LABS: MANUAL DIFF FLAG NO
[2020-11-01 10:04] LABS: Basophils Percent Auto 0.6 % (0-2); Eosinophils Absolute Auto 0.2 X10*3/uL (0.0-0.4); Eosinophils Percent Auto 3.5 % (0-4); Hematocrit 43.8 % (42-52); Hemoglobin 13.3 g/dl (14.0-18.0); Imm Gran Abs Auto 0.01 X10*3/uL (0.00-0.03); Imm Gran Pct Auto 0.2 % (0.0-0.4); Lymphocytes Absolute Auto 2.1 X10*3/uL (1.2-4.9); Lymphocytes Percent Auto 31.6 % (20-40); Mean Corpuscular HGB Conc 30.4 g/dl (31.0-36.0); Mean Corpuscular Hemoglobin 24.9 pg (27.0-33.0); Mean Corpuscular Volume 81.9 fL (80-98); Mean Platelet Volume 10.2 fL (9.4-12.4); Monocytes Absolute Auto 0.5 X10*3/uL (0.1-1.2); Neutrophils Absolute Auto 3.6 X10*3/uL (2.0-8.3); Neutrophils Percent Auto 56.1 % (45-73); Platelet Count 295 X10*3/uL (160-400); Red Blood Count 5.35 X10*6/uL (4.60-5.80); Red Cell Distribution Width 15.5 % (11.0-16.0); White Blood Count 6.5 X10*3/uL (4.8-10.8)
[2020-11-01 10:06] LABS: Glucose Urine UA NEG (NEG); Leukocyte Esterase Urine NEG (NEG); Nitrite Urine NEG (NEG); Specific Gravity - Urine 1.025 (1.005-1.025); Urine Blood NEG (NEG); Urine Ketones NEG (NEG); Urine Protein 2+ MG/DL (NEG-TRACE)
[2020-11-01 10:08] LABS: Appearance Urine CLEAR; Color Urine YELLOW
[2020-11-01 10:14] LABS: Estimated Average Glucose 151 mg/dL; Hemoglobin A1c % 6.9 %
[2020-11-01 10:34] LABS: Creatinine Urine 129.91 mg/dL
[2020-11-01 10:55] LABS: Alanine Aminotransferase 32 U/L (0-40); Albumin Level 4.4 g/dL (3.5-5.0); Alkaline Phosphatase 72 U/L (39-117); Anion Gap 14 (12-20); Aspartate Amino Transferase 14 U/L (5-37); Bilirubin Total 0.6 mg/dL (0.0-1.0); Blood Urea Nitrogen 23 mg/dL (9-16); Calcium 9.4 mg/dL (8.4-10.2); Carbon Dioxide 26 mmol/L (22-29); Chloride 108 mmol/L (96-108); Cholesterol 140 mg/dL; Estimated Glomerular Filt Rate 59; Glucose Fasting 179 mg/dL (60-99); HDL Cholesterol 37 mg/dL; LDL Cholesterol Calculated 78 mg/dl; Potassium 4.6 mmol/L (3.3-5.1); Sodium 143 mmol/L (135-145); TSH reflex Free T4 1.94 uIU/mL (0.32-4.0); Total Protein 6.9 g/dL (6.5-8.0); Triglycerides 128 mg/dL; Vitamin D 25-OH Total 33.4 ng/mL (>30)
[2020-11-01 11:00] LABS: Microalbum/Creatinine Ratio Ur 505.7 ug/mg cr
[2020-11-01 11:01] LABS: RBC Urine 0-2 /HPF (0); WBC Urine 0-2 /HPF (0-4)
[2020-11-01 12:57] LABS: Vitamin B12 181 pg/mL (200-900)
[2020-11-03 00:22] LABS: LDL Cholesterol Direct 82 mg/dL (<100)
== END 2020-11-01 09:01 | disposition home or self-care (01) ==
LOC: HO.LAB 09:00
PROVIDERS: PCP Internal Medicine; Visit Provider Internal Medicine Endocrinology, Diabetes & Metabolism
DX: K21.9 Gastro-esophageal reflux disease without esophagitis (principal); E11.65 Type 2 diabetes mellitus with hyperglycemia; E11.22 Type 2 diabetes mellitus with diabetic chronic kidney disease; I12.9 Hypertensive chronic kidney disease with stage 1 through stage 4 chronic kidney disease, or unspecified chronic kidney disease; N18.2 Chronic kidney disease, stage 2 (mild); Z79.4 Long term (current) use of insulin; E78.00 Pure hypercholesterolemia, unspecified
CPT/HCPCS: 36415; 80053; 80061; 81001; 81003; 82043; 82306; 82607; 83036; 83721; 84443; 85025

== ENCOUNTER 2020-12-09 07:33 | Outpatient (REF) | payer BC, SELFPAY ==
--- NOTE | ~2020-12-09 | XR_ITS ---
EXAMINATION: XR KNEE STANDING, BILATERAL XR KNEE, RIGHT CLINICAL INFORMATION: Pain. COMPARISON: Most recent right knee radiographs dated 09/10/2020 and standing bilateral knee radiographs dated 06/27/2020 TECHNIQUE: AP view of the right and left knee in weightbearing position. Lateral and sunrise views of the right knee. FINDINGS: Total right knee arthroplasty. No acute hardware or osseous fracture. No perihardware lucency to suggest loosening or infection. Small joint effusion. Atherosclerotic calcifications. Mild medial compartment joint space narrowing with tiny marginal osteophytes within the left knee, unchanged. XR/XR knee RT 2V IMPRESSION: 1. Total right knee arthroplasty without evidence of hardware complication. Small joint effusion. 2. Mild medial compartment osteoarthritis within the left knee, unchanged.
--- NOTE | ~2020-12-09 | XR_ITS ---
EXAMINATION: XR KNEE STANDING, BILATERAL XR KNEE, RIGHT CLINICAL INFORMATION: Pain. COMPARISON: Most recent right knee radiographs dated 09/10/2020 and standing bilateral knee radiographs dated 06/27/2020 TECHNIQUE: AP view of the right and left knee in weightbearing position. Lateral and sunrise views of the right knee. FINDINGS: Total right knee arthroplasty. No acute hardware or osseous fracture. No perihardware lucency to suggest loosening or infection. Small joint effusion. Atherosclerotic calcifications. Mild medial compartment joint space narrowing with tiny marginal osteophytes within the left knee, unchanged. XR/XR knee standing BI IMPRESSION: 1. Total right knee arthroplasty without evidence of hardware complication. Small joint effusion. 2. Mild medial compartment osteoarthritis within the left knee, unchanged.
== END 2020-12-09 07:34 | disposition home or self-care (01) ==
LOC: HO.HOSX 07:33
PROVIDERS: Visit Provider Orthopaedic Surgery
DX: T84.84XA Pain due to internal orthopedic prosthetic devices, implants and grafts, initial encounter (principal); Z96.651 Presence of right artificial knee joint
CPT/HCPCS: 73560; 73565

== ENCOUNTER → 2020-12-30 09:12 | Outpatient (BNVA) | payer BC, MEDICAID, SELFPAY | PROVIDERS: PCP Internal Medicine; Visit Provider Orthopaedic Surgery ==

== ENCOUNTER → 2021-01-13 08:55 | Outpatient (BNVA) | payer BC, MEDICAID, SELFPAY | PROVIDERS: PCP Internal Medicine; Visit Provider Internal Medicine Endocrinology, Diabetes & Metabolism | DX: E11.65 Type 2 diabetes mellitus with hyperglycemia (principal); E11.42 Type 2 diabetes mellitus with diabetic polyneuropathy; E11.21 Type 2 diabetes mellitus with diabetic nephropathy; E11.22 Type 2 diabetes mellitus with diabetic chronic kidney disease; I12.9 Hypertensive chronic kidney disease with stage 1 through stage 4 chronic kidney disease, or unspecified chronic kidney disease; N18.2 Chronic kidney disease, stage 2 (mild); Z79.4 Long term (current) use of insulin; E78.00 Pure hypercholesterolemia, unspecified; E55.9 Vitamin D deficiency, unspecified; E66.9 Obesity, unspecified; E53.8 Deficiency of other specified B group vitamins; B35.3 Tinea pedis | CPT/HCPCS: 82947 ==

== ENCOUNTER 2021-01-13 10:08 | Outpatient (REF) | payer BC, MEDICAID, SELFPAY ==
[2021-01-13 15:08] LABS: Vitamin B12 432 pg/mL (200-900)
== END 2021-01-13 10:09 | disposition home or self-care (01) ==
LOC: HO.10HDL 10:08
PROVIDERS: Visit Provider Internal Medicine Endocrinology, Diabetes & Metabolism
DX: E53.8 Deficiency of other specified B group vitamins (principal)
CPT/HCPCS: 36415; 82607

== ENCOUNTER 2021-01-15 12:51 | Outpatient (REF) | payer BC, OTHER, SELFPAY ==
--- NOTE | ~2021-01-15 | CT_ITS ---
EXAMINATION: CT HEAD WITHOUT CONTRAST CLINICAL INFORMATION: Headache COMPARISON: None TECHNIQUE: Contiguous axial imaging was performed from the skull base to vertex without intravenous administration of contrast. This CT examination was performed using dose optimization techniques as appropriate, variously including the following: *Automated exposure control *Adjustment of mA and/or kV according to patient size (this includes techniques or standardized protocols for targeted exams where dose is matched to indication/reason for exam; i.e. extremities or head) *Use of iterative reconstruction technique DLP: 800 mGy-cm FINDINGS: There is no evidence of acute intracranial hemorrhage or territorial infarction. No abnormal mass effect or midline shift is seen. [place] to white matter differentiation is well preserved. No extra-axial fluid collections are identified. The ventricles are normal in size. There is no abnormal attenuation within the brain parenchyma. The osseous structures and soft tissues are normal. The mastoid air cells and visualized portions of the paranasal sinuses are well aerated. CT/CT head/brain wo con IMPRESSION: Unremarkable exam.
== END 2021-01-15 12:52 | disposition home or self-care (01) ==
LOC: HO.CT 12:51
PROVIDERS: PCP Internal Medicine; Visit Provider Internal Medicine
DX: R51.9 Headache, unspecified (principal)
CPT/HCPCS: 70450

== ENCOUNTER 2021-02-26 11:00 | Outpatient (RCR) | payer BC, MEDICAID, OTHER, SELFPAY ==
--- NOTE | 2020-10-03 12:46 | MHC.PT.EP ---
[facility] [place] Office [place] Office [place] Office [address] Lencho Caldera [address] [phone] F: [phone] F: [phone] F: [phone] F: [phone] Physical Therapy Plan of Care Date of Evaluation: 10/03/20 Date of Surgery: 09/10/20 Diagnosis: R TKA Assessment: Patient is a 60 year old R handed male who presents with s/s consistent with R TKA. 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 He stays busy with [employer]. He notes his s/s are worst when sleeping and standing/walking. Patient past medical history includes DM. Current impairments include pain, ROM, strength, safety, independence, activity tolerance and functional mobility. Functional limitations include decreased ability to walk, stand, transfer, sleep, negotiate stairs, and perform weight bearing activities.. Patient is motivated with good rehab potential. Skilled PT will address impairments and functional limitations in order to achieve goals. Frequency and Duration: The patient will be seen 2x/week for 6 weeks Short Term Goals: I with HEP - 2 weeks AROM 5-120 - 3 weeks Step through on stairs - 3 weeks No AD with ambulation, symmetrical step through - 3 weeks Cylind[employer]er Goals: LEFS 50/80 - 6 weeks AROM 0-125 - 6 weeks LE strength 4/5 grossly - 6 weeks Treatment Plan: Modalities to reduce pain, spasms and effusion. Manual therapy to restore motion and function. Therapeutic exercise to improve strength and flexibility. Neuromuscular re-education for posture and balance. Therapeutic activities to return to functional activities of daily living. Electronically signed by: Jose De Jesus Collins, PT Please sign and return to therapist. Thank you for your referral.
--- NOTE | 2021-03-19 08:22 | MHC.PT.DC ---
[facility] [place] Office [place] Office [place] Office [address] Lencho Caldera [address] [phone] F: [phone] F: [phone] F: [phone] F: [phone] Physical Therapy Discharge Report Diagnosis: R TKA Date of Surgery: 09/10/20 Date of Evaluation: 10/03/20 Date of Discharge: 03/19/21 Treatments to Date: 26 Cancellations to Date: 0 No Shows to Date: 0 Discharge Status: Improved Function Independent with HEP Patient Elected to Stop Discharge Summary: Pt HAS RESIDUAL ROM DEFICITS IN HIS RIGHT KNEE, HOWEVER, HE IS INDEP W HEP AND THE TECHN WE HAVE RECOMMENDED AND PERF IN PT TO ADDRESS ROM LIMITATIONS. Pt IS INDEP W GAIT ON LEVEL AND STAIRS, TRANSFERS, AND BED MOBILITY. HE HAS FLUCTUATING PAIN LEVELS IN RIGHT KNEE WHICH IMPACT HIS FUNCTIONAL MOBILITY TOLERANCE. Electronically signed by: Geovanna Phoenix,PT Please sign and return to therapist. Thank you for your referral.
== END 2021-03-19 08:25 | disposition home or self-care (01) ==
LOC: HO.PTCHIC 11:00
PROVIDERS: PCP Internal Medicine; Visit Provider Physician Assistant
DX: Z47.1 Aftercare following joint replacement surgery (principal); Z96.651 Presence of right artificial knee joint
CPT/HCPCS: 97110; 97140; 97162; 97530

== ENCOUNTER 2021-03-24 09:17 | Outpatient (REF) | payer BC, MEDICAID, SELFPAY ==
[2021-03-24 10:07] LABS: MANUAL DIFF FLAG NO
[2021-03-24 10:14] LABS: Basophils Percent Auto 0.5 % (0-2); Eosinophils Absolute Auto 0.2 X10*3/uL (0.0-0.4); Eosinophils Percent Auto 3.7 % (0-4); Hematocrit 42.7 % (42-52); Hemoglobin 13.5 g/dl (14.0-18.0); Imm Gran Abs Auto 0.01 X10*3/uL (0.00-0.03); Imm Gran Pct Auto 0.2 % (0.0-0.4); Lymphocytes Absolute Auto 1.7 X10*3/uL (1.2-4.9); Lymphocytes Percent Auto 29.2 % (20-40); Mean Corpuscular HGB Conc 31.6 g/dl (31.0-36.0); Mean Corpuscular Hemoglobin 25.6 pg (27.0-33.0); Mean Platelet Volume 10.1 fL (9.4-12.4); Monocytes Absolute Auto 0.5 X10*3/uL (0.1-1.2); Monocytes Percent Auto 8.3 % (2-11); Neutrophils Absolute Auto 3.4 X10*3/uL (2.0-8.3); Neutrophils Percent Auto 58.1 % (45-73); Platelet Count 231 X10*3/uL (160-400); Red Blood Count 5.27 X10*6/uL (4.60-5.80); Red Cell Distribution Width 15.9 % (11.0-16.0); White Blood Count 5.9 X10*3/uL (4.8-10.8)
[2021-03-24 10:23] LABS: Estimated Average Glucose 160 mg/dL; Hemoglobin A1c % 7.2 %
[2021-03-24 10:41] LABS: Alanine Aminotransferase 24 U/L (0-40); Albumin Level 4.3 g/dL (3.5-5.0); Alkaline Phosphatase 59 U/L (39-117); Anion Gap 11 (12-20); Aspartate Amino Transferase 15 U/L (5-37); Bilirubin Total 0.4 mg/dL (0.0-1.0); Blood Urea Nitrogen 24 mg/dL (9-16); Calcium 9.8 mg/dL (8.4-10.2); Carbon Dioxide 29 mmol/L (22-29); Chloride 107 mmol/L (96-108); Cholesterol 132 mg/dL; Estimated Glomerular Filt Rate 45; Glucose Fasting 149 mg/dL (60-99); HDL Cholesterol 34 mg/dL; LDL Cholesterol Calculated 73 mg/dl; Potassium 4.6 mmol/L (3.3-5.1); Sodium 142 mmol/L (135-145); Total Protein 6.6 g/dL (6.5-8.0); Triglycerides 129 mg/dL
[2021-03-24 10:48] LABS: Glucose Urine UA NEG (NEG); Leukocyte Esterase Urine NEG (NEG); Nitrite Urine NEG (NEG); Specific Gravity - Urine 1.025 (1.005-1.025); Urine Blood NEG (NEG); Urine Ketones 5 MG/DL (NEG); Urine Protein 1+ MG/DL (NEG-TRACE)
[2021-03-24 10:51] LABS: Appearance Urine CLEAR; Color Urine YELLOW
[2021-03-24 11:03] LABS: Creatinine Urine 174.64 mg/dL; Microalbum/Creatinine Ratio Ur 155.7 ug/mg cr
[2021-03-24 11:04] LABS: TSH reflex Free T4 1.02 uIU/mL (0.32-4.0); Vitamin D 25-OH Total 34.7 ng/mL (>30)
[2021-03-24 11:11] LABS: RBC Urine 0-2 /HPF (0); Squamous Epithelial Cell Urine TRACE /LPF; WBC Urine 0 /HPF (0-4)
[2021-03-24 11:46] LABS: Folate 11.4 ng/mL (> or = 4.0); Vitamin B12 542 pg/mL (200-900)
== END 2021-03-24 09:18 | disposition home or self-care (01) ==
LOC: HO.LAB 09:17
PROVIDERS: PCP Internal Medicine; Visit Provider Internal Medicine
DX: I12.9 Hypertensive chronic kidney disease with stage 1 through stage 4 chronic kidney disease, or unspecified chronic kidney disease (principal); N18.2 Chronic kidney disease, stage 2 (mild); E11.22 Type 2 diabetes mellitus with diabetic chronic kidney disease; E78.00 Pure hypercholesterolemia, unspecified; E66.9 Obesity, unspecified; E55.9 Vitamin D deficiency, unspecified; E53.8 Deficiency of other specified B group vitamins; K21.9 Gastro-esophageal reflux disease without esophagitis; Z79.4 Long term (current) use of insulin
CPT/HCPCS: 36415; 80053; 80061; 81001; 82043; 82306; 82607; 82746; 83036; 84443; 85025

== ENCOUNTER → 2021-03-31 09:09 | Outpatient (BNVA) | payer BC, MEDICAID, SELFPAY | PROVIDERS: Visit Provider Orthopaedic Surgery ==

== ENCOUNTER 2021-04-17 13:18 | Outpatient (REF) | payer BC, MEDICAID, SELFPAY ==
--- NOTE | ~2021-04-17 | XR_ITS ---
EXAMINATION: XR HAND, RIGHT XR HAND, LEFT CLINICAL INFORMATION: Pain. COMPARISON: Right hand radiographs dated 11/28/2006. TECHNIQUE: AP, oblique, and lateral views of the right and left hands. FINDINGS: RIGHT HAND: No acute fracture or dislocation. Normal carpal alignment. Mild joint space narrowing with tiny 2nd and 3rd metacarpophalangeal marginal osteophytes, new when compared to the prior examination. No osseous erosion. No abnormal soft tissue calcification. LEFT HAND: No acute fracture or dislocation. Normal carpal alignment. No joint space narrowing or marginal osteophytes. No osseous erosion. No abnormal soft tissue calcification. XR/XR hand LT min 3V IMPRESSION: Right hand: Mild osteoarthritis at the 2nd and 3rd metacarpophalangeal joints, increased when compared to the prior examination. Left hand: Unremarkable examination.
--- NOTE | ~2021-04-17 | XR_ITS ---
EXAMINATION: XR HAND, RIGHT XR HAND, LEFT CLINICAL INFORMATION: Pain. COMPARISON: Right hand radiographs dated 11/28/2006. TECHNIQUE: AP, oblique, and lateral views of the right and left hands. FINDINGS: RIGHT HAND: No acute fracture or dislocation. Normal carpal alignment. Mild joint space narrowing with tiny 2nd and 3rd metacarpophalangeal marginal osteophytes, new when compared to the prior examination. No osseous erosion. No abnormal soft tissue calcification. LEFT HAND: No acute fracture or dislocation. Normal carpal alignment. No joint space narrowing or marginal osteophytes. No osseous erosion. No abnormal soft tissue calcification. XR/XR hand RT min 3V IMPRESSION: Right hand: Mild osteoarthritis at the 2nd and 3rd metacarpophalangeal joints, increased when compared to the prior examination. Left hand: Unremarkable examination.
== END 2021-04-17 13:19 | disposition home or self-care (01) ==
LOC: HO.XRAY 13:18
PROVIDERS: PCP Internal Medicine; Visit Provider Internal Medicine
DX: M79.641 Pain in right hand (principal); M79.642 Pain in left hand
CPT/HCPCS: 73130

== ENCOUNTER 2021-07-07 10:30 | Outpatient (REF) | payer BC, MEDICAID, SELFPAY ==
[2021-07-07 10:43] LABS: MANUAL DIFF FLAG NO
[2021-07-07 11:41] LABS: Basophils Percent Auto 0.6 % (0-2); Eosinophils Absolute Auto 0.2 X10*3/uL (0.0-0.4); Eosinophils Percent Auto 3.1 % (0-4); Hematocrit 44.1 % (42.0-52.0); Hemoglobin 14.4 g/dl (14.0-18.0); Imm Gran Abs Auto 0.02 X10*3/uL (0.00-0.03); Imm Gran Pct Auto 0.3 % (0.0-0.4); Lymphocytes Absolute Auto 1.9 X10*3/uL (1.2-4.9); Lymphocytes Percent Auto 28.8 % (20-40); Mean Corpuscular HGB Conc 32.7 g/dl (31.0-36.0); Mean Corpuscular Hemoglobin 26.4 pg (27.0-33.0); Mean Corpuscular Volume 80.9 fL (80.0-98.0); Mean Platelet Volume 10.5 fL (9.4-12.4); Monocytes Absolute Auto 0.5 X10*3/uL (0.1-1.2); Monocytes Percent Auto 7.6 % (2-11); Neutrophils Absolute Auto 3.85 x10*3/uL (2.0-8.3); Neutrophils Percent Auto 59.6 % (45-73); Platelet Count 241 X10*3/uL (160-400); Red Blood Count 5.45 X10*6/uL (4.60-5.80); Red Cell Distribution Width 14.6 % (11.0-16.0); White Blood Count 6.5 X10*3/uL (4.8-10.8)
[2021-07-07 11:51] LABS: Estimated Average Glucose 140 mg/dL; Hemoglobin A1c % 6.5 %
[2021-07-07 12:03] LABS: Alanine Aminotransferase 23 U/L (0-40); Albumin Level 4.4 g/dL (3.5-5.0); Alkaline Phosphatase 62 U/L (39-117); Anion Gap 14 (12-20); Aspartate Amino Transferase 15 U/L (5-37); Bilirubin Total 0.5 mg/dL (0.0-1.0); Blood Urea Nitrogen 19 mg/dL (9-16); Calcium 9.3 mg/dL (8.4-10.2); Carbon Dioxide 25 mmol/L (22-29); Chloride 107 mmol/L (96-108); Cholesterol 138 mg/dL; Estimated Glomerular Filt Rate > 60; Glucose Fasting 139 mg/dL (60-99); HDL Cholesterol 36 mg/dL; LDL Cholesterol Calculated 81 mg/dl; Potassium 4.8 mmol/L (3.3-5.1); Sodium 141 mmol/L (135-145); Total Protein 6.9 g/dL (6.5-8.0); Triglycerides 105 mg/dL
[2021-07-07 12:12] LABS: Rheumatoid Factor < 15.0 IU/mL (<15.0); TSH reflex Free T4 1.31 uIU/mL (0.32-4.0); Vitamin D 25-OH Total 41.4 ng/mL (>30)
[2021-07-07 12:16] LABS: Appearance Urine CLEAR; Color Urine YELLOW; Glucose Urine UA NEG (NEG); Leukocyte Esterase Urine NEG (NEG); Nitrite Urine NEG (NEG); Specific Gravity - Urine 1.025 (1.005-1.025); UACC Culture Trigger NO; Urine Blood TRACE (NEG); Urine Ketones NEG (NEG); Urine Protein 2+ MG/DL (NEG-TRACE)
[2021-07-07 12:21] LABS: Erythrocyte Sedimentation Rate 4 MM/HR (0-15)
[2021-07-07 12:38] LABS: Mucus Urine 1+ /LPF; Squamous Epithelial Cell Urine TRACE /LPF; WBC Urine 0 /HPF (0-4)
[2021-07-07 12:39] LABS: Creatinine Urine 133.73 mg/dL
[2021-07-07 12:53] LABS: Microalbum/Creatinine Ratio Ur 919.7 ug/mg cr
== END 2021-07-07 10:31 | disposition home or self-care (01) ==
LOC: HO.LAB 10:30
PROVIDERS: PCP Internal Medicine; Visit Provider Internal Medicine
DX: M79.641 Pain in right hand (principal); M79.642 Pain in left hand; E55.9 Vitamin D deficiency, unspecified; E11.9 Type 2 diabetes mellitus without complications; E78.00 Pure hypercholesterolemia, unspecified; I10 Essential (primary) hypertension
CPT/HCPCS: 36415; 80053; 80061; 81001; 82043; 82306; 83036; 84443; 85025; 85652; 86431

== ENCOUNTER 2021-12-18 09:51 | Outpatient (REF) | payer BC, MEDICAID, SELFPAY ==
[2021-12-18 10:10] LABS: MANUAL DIFF FLAG NO
[2021-12-18 10:34] LABS: Basophils Percent Auto 0.6 % (0-2); Eosinophils Absolute Auto 0.2 X10*3/uL (0.0-0.4); Eosinophils Percent Auto 2.9 % (0-4); Hematocrit 45.4 % (42.0-52.0); Hemoglobin 14.7 g/dl (14.0-18.0); Imm Gran Abs Auto 0.02 X10*3/uL (0.00-0.03); Imm Gran Pct Auto 0.3 % (0.0-0.4); Lymphocytes Absolute Auto 1.9 X10*3/uL (1.2-4.9); Lymphocytes Percent Auto 26.3 % (20-40); Mean Corpuscular HGB Conc 32.4 g/dl (31.0-36.0); Mean Corpuscular Volume 80.2 fL (80.0-98.0); Mean Platelet Volume 10.3 fL (9.4-12.4); Monocytes Absolute Auto 0.5 X10*3/uL (0.1-1.2); Monocytes Percent Auto 7.3 % (2-11); Neutrophils Absolute Auto 4.5 x10*3/uL (2.0-8.3); Neutrophils Percent Auto 62.6 % (45-73); Platelet Count 244 X10*3/uL (160-400); Red Blood Count 5.66 X10*6/uL (4.60-5.80); Red Cell Distribution Width 14.6 % (11.0-16.0); White Blood Count 7.1 X10*3/uL (4.8-10.8)
[2021-12-18 10:51] LABS: Estimated Average Glucose 151 mg/dL; Hemoglobin A1c % 6.9 %
[2021-12-18 11:14] LABS: Alanine Aminotransferase 38 U/L (0-40); Albumin Level 4.3 g/dL (3.5-5.0); Alkaline Phosphatase 67 U/L (39-117); Anion Gap 15 (12-20); Aspartate Amino Transferase 23 U/L (5-37); Bilirubin Total 0.7 mg/dL (0.0-1.0); Blood Urea Nitrogen 20 mg/dL (9-16); Calcium 9.7 mg/dL (8.4-10.2); Carbon Dioxide 24 mmol/L (22-29); Chloride 104 mmol/L (96-108); Cholesterol 158 mg/dL; Estimated Glomerular Filt Rate 49; Glucose Fasting 167 mg/dL (60-99); HDL Cholesterol 36 mg/dL; LDL Cholesterol Calculated 89 mg/dl; Potassium 4.8 mmol/L (3.3-5.1); Sodium 138 mmol/L (135-145); Total Protein 6.9 g/dL (6.5-8.0); Triglycerides 165 mg/dL
[2021-12-18 11:20] LABS: Creatinine Urine 146.96 mg/dL
[2021-12-18 11:36] LABS: Appearance Urine CLEAR; Color Urine YELLOW; Glucose Urine UA NEG (NEG); Leukocyte Esterase Urine NEG (NEG); Nitrite Urine NEG (NEG); PH 5.5 (5.0-8.0); Specific Gravity - Urine >= 1.030 (1.005-1.025); UACC Culture Trigger NO; Urine Blood TRACE (NEG); Urine Ketones NEG (NEG); Urine Protein 2+ MG/DL (NEG-TRACE)
[2021-12-18 11:41] LABS: TSH reflex Free T4 1.43 uIU/mL (0.32-4.0); Vitamin D 25-OH Total 30.4 ng/mL (>30)
[2021-12-18 11:52] LABS: Squamous Epithelial Cell Urine 1+ /LPF
[2021-12-18 11:53] LABS: Bacteria Urine TRACE /LPF
== END 2021-12-18 09:52 | disposition home or self-care (01) ==
LOC: HO.LAB 09:51
PROVIDERS: PCP Internal Medicine; Visit Provider Internal Medicine
DX: E78.00 Pure hypercholesterolemia, unspecified (principal); E55.9 Vitamin D deficiency, unspecified; E11.9 Type 2 diabetes mellitus without complications; I10 Essential (primary) hypertension
CPT/HCPCS: 36415; 80053; 80061; 81001; 81003; 82043; 82306; 83036; 84443; 85025

== ENCOUNTER 2021-12-22 11:59 | Outpatient (REF) | payer BC, MEDICAID, SELFPAY ==
--- NOTE | ~2021-12-22 | XR_ITS ---
EXAMINATION: 1. RADIOGRAPHS RIGHT SHOULDER 2. RADIOGRAPHS LEFT SHOULDER CLINICAL INFORMATION: Pain COMPARISON: None TECHNIQUE: 4 views of each shoulder were obtained. FINDINGS: Right shoulder: Visualized portion of the proximal right humerus demonstrate no fracture. Humeral head demonstrates good articulation with the glenoid fossa. Minimal hypertrophic changes of the right acromioclavicular joint. Visualized right-sided ribs and lung parenchyma are unremarkable. Left shoulder: Visualized portion of the proximal left humerus demonstrate no fracture. Humeral head demonstrates good articulation with the glenoid fossa. Mild hypertrophic changes of the left acromioclavicular joint. Visualized left-sided ribs and lung parenchyma are unremarkable. XR/XR shoulder LT min 2V IMPRESSION: Mild degenerative changes of both shoulders.
--- NOTE | ~2021-12-22 | XR_ITS ---
EXAMINATION: 1. RADIOGRAPHS RIGHT SHOULDER 2. RADIOGRAPHS LEFT SHOULDER CLINICAL INFORMATION: Pain COMPARISON: None TECHNIQUE: 4 views of each shoulder were obtained. FINDINGS: Right shoulder: Visualized portion of the proximal right humerus demonstrate no fracture. Humeral head demonstrates good articulation with the glenoid fossa. Minimal hypertrophic changes of the right acromioclavicular joint. Visualized right-sided ribs and lung parenchyma are unremarkable. Left shoulder: Visualized portion of the proximal left humerus demonstrate no fracture. Humeral head demonstrates good articulation with the glenoid fossa. Mild hypertrophic changes of the left acromioclavicular joint. Visualized left-sided ribs and lung parenchyma are unremarkable. XR/XR shoulder RT min 2V IMPRESSION: Mild degenerative changes of both shoulders.
== END 2021-12-22 12:00 | disposition home or self-care (01) ==
LOC: HO.XRAY 11:59
PROVIDERS: PCP Internal Medicine; Visit Provider Internal Medicine
DX: M25.511 Pain in right shoulder (principal); M25.512 Pain in left shoulder
CPT/HCPCS: 73030

== ENCOUNTER 2022-04-06 09:55 | Outpatient (REF) | payer BC, MEDICAID, SELFPAY ==
[2022-04-06 10:17] LABS: MANUAL DIFF FLAG NO
[2022-04-06 11:02] LABS: Basophils Percent Auto 0.7 % (0-2); Eosinophils Absolute Auto 0.2 X10*3/uL (0.0-0.4); Eosinophils Percent Auto 3.7 % (0-4); Hematocrit 44.3 % (42.0-52.0); Hemoglobin 14.1 g/dl (14.0-18.0); Imm Gran Abs Auto 0.01 X10*3/uL (0.00-0.03); Imm Gran Pct Auto 0.2 % (0.0-0.4); Lymphocytes Absolute Auto 1.8 X10*3/uL (1.2-4.9); Lymphocytes Percent Auto 29.9 % (20-40); Mean Corpuscular HGB Conc 31.8 g/dl (31.0-36.0); Mean Corpuscular Hemoglobin 26.2 pg (27.0-33.0); Mean Corpuscular Volume 82.2 fL (80.0-98.0); Mean Platelet Volume 10.2 fL (9.4-12.4); Monocytes Absolute Auto 0.4 X10*3/uL (0.1-1.2); Neutrophils Absolute Auto 3.5 x10*3/uL (2.0-8.3); Neutrophils Percent Auto 58.5 % (45-73); Platelet Count 256 X10*3/uL (160-400); Red Blood Count 5.39 X10*6/uL (4.60-5.80); Red Cell Distribution Width 14.8 % (11.0-16.0)
[2022-04-06 11:04] LABS: Appearance Urine CLEAR; Color Urine YELLOW; Glucose Urine UA NEG (NEG); Leukocyte Esterase Urine NEG (NEG); Nitrite Urine NEG (NEG); PH 5.5 (5.0-8.0); Specific Gravity - Urine >= 1.030 (1.005-1.025); Urine Blood NEG (NEG); Urine Ketones NEG (NEG); Urine Protein 1+ MG/DL (NEG-TRACE)
[2022-04-06 11:32] LABS: Creatinine Urine 176.21 mg/dL; Microalbum/Creatinine Ratio Ur 127.1 ug/mg cr; Total Protein Urine Random 35 mg/dL (<12)
[2022-04-06 11:43] LABS: RBC Urine 0-2 /HPF (0); Squamous Epithelial Cell Urine TRACE /LPF; WBC Urine 0-2 /HPF (0-4)
[2022-04-06 11:49] LABS: Albumin Level 4.2 g/dL (3.5-5.0); Anion Gap 16 (12-20); Blood Urea Nitrogen 15 mg/dL (9-16); Calcium 9.4 mg/dL (8.4-10.2); Carbon Dioxide 25 mmol/L (22-29); Chloride 106 mmol/L (96-108); Estimated Glomerular Filt Rate > 60; Phosphorus 3.7 mg/dL (2.7-4.5); Potassium 4.5 mmol/L (3.3-5.1); Sodium 142 mmol/L (135-145)
[2022-04-06 11:51] LABS: Magnesium 1.4 mg/dL (1.6-2.6)
[2022-04-06 11:52] LABS: HBS Num1 3.91 mIU/mL (0-7.99); HBc Num1 0.08 S/CO (0.00-0.79); HBsAGNum1 0.26 S/CO (0.00-0.99); Hepatitis B Core Antibody Nonreactive (Nonreactive); Hepatitis B Surface Antigen Negative (Negative); ~HepC Num1 0.05 S/CO (0.00-0.79); ~Hepatitis B Surface Antibody NONREACTIVE (Nonreactive); ~Hepatitis C Antibody Nonreactive (Nonreactive)
[2022-04-06 11:54] LABS: Vitamin D 25-OH Total 36.5 ng/mL (>30)
[2022-04-07 10:07] LABS: Complement C3 160 mg/dL (82-185)
[2022-04-07 11:12] LABS: Calcium (PTHI) 9.3 mg/dL (8.6-10.3); PTHI 39 pg/mL (16-77)
[2022-04-08 10:57] LABS: Kappa Light Chain, Free Serum 20.9 mg/L (3.3-19.4); Kappa/Lambda Lt Ch Free Ratio 1.14 (0.26-1.65); Lambda Light Chain, Free Serum 18.3 mg/L (5.7-26.3)
[2022-04-08 21:47] LABS: Prot Elec - Albumin 3.9 g/dL (3.8-4.8); Prot Elec - Alpha1 0.3 g/dL (0.2-0.3); Prot Elec - Alpha2 0.8 g/dL (0.5-0.9); Prot Elec - Beta 1 0.4 g/dL (0.4-0.6); Prot Elec - Beta 2 0.4 g/dL (0.2-0.5); Prot Elec - Gamma 0.8 g/dL (0.8-1.7); Prot Elec - Total Protein 6.6 g/dL (6.1-8.1)
[2022-04-08 22:28] LABS: Anti Nuclear Antibody Screen NEGATIVE (NEGATIVE)
== END 2022-04-06 09:56 | disposition home or self-care (01) ==
LOC: HO.LAB 09:55
PROVIDERS: PCP Internal Medicine; Visit Provider Internal Medicine Nephrology
DX: E11.22 Type 2 diabetes mellitus with diabetic chronic kidney disease (principal); N18.31 Chronic kidney disease, stage 3a; N25.0 Renal osteodystrophy
CPT/HCPCS: 36415; 80051; 81001; 81003; 82040; 82043; 82306; 82310; 82565; 83521; 83735; 83970; 84100; 84156; 84165; 84520; 85025; 86038; 86039; 86160; 86704; 86706; 86803; 87086; 87340

== ENCOUNTER → 2022-04-29 10:53 | Outpatient (BNVA) | payer BC, MEDICAID, SELFPAY | PROVIDERS: PCP Internal Medicine; Visit Provider Internal Medicine Endocrinology, Diabetes & Metabolism | DX: E11.22 Type 2 diabetes mellitus with diabetic chronic kidney disease (principal); N18.2 Chronic kidney disease, stage 2 (mild); Z79.4 Long term (current) use of insulin | CPT/HCPCS: 82947; 83036 ==

== ENCOUNTER → 2022-06-18 09:49 | Outpatient (BNVA) | payer BC, MEDICAID, SELFPAY | PROVIDERS: PCP Internal Medicine; Visit Provider Dietitian, Registered | DX: E11.22 Type 2 diabetes mellitus with diabetic chronic kidney disease (principal); N18.2 Chronic kidney disease, stage 2 (mild); Z79.4 Long term (current) use of insulin | CPT/HCPCS: 97802 ==

== ENCOUNTER 2022-07-27 10:07 | Outpatient (REF) | payer BC, MEDICAID, SELFPAY ==
[2022-07-27 10:36] LABS: MANUAL DIFF FLAG NO
[2022-07-27 12:16] LABS: Basophils Percent Auto 0.7 % (0-2); Eosinophils Absolute Auto 0.2 X10*3/uL (0.0-0.4); Eosinophils Percent Auto 4.1 % (0-4); Hematocrit 44.1 % (42.0-52.0); Hemoglobin 14.3 g/dl (14.0-18.0); Imm Gran Abs Auto 0.03 X10*3/uL (0.00-0.03); Imm Gran Pct Auto 0.6 % (0.0-0.4); Lymphocytes Absolute Auto 1.6 X10*3/uL (1.2-4.9); Lymphocytes Percent Auto 29.9 % (20-40); Mean Corpuscular HGB Conc 32.4 g/dl (31.0-36.0); Mean Corpuscular Hemoglobin 26.5 pg (27.0-33.0); Mean Corpuscular Volume 81.7 fL (80.0-98.0); Mean Platelet Volume 10.4 fL (9.4-12.4); Monocytes Absolute Auto 0.4 X10*3/uL (0.1-1.2); Monocytes Percent Auto 7.7 % (2-11); Neutrophils Absolute Auto 3.1 x10*3/uL (2.0-8.3); Platelet Count 242 X10*3/uL (160-400); Red Cell Distribution Width 14.3 % (11.0-16.0); White Blood Count 5.4 X10*3/uL (4.8-10.8)
[2022-07-27 12:19] LABS: Appearance Urine Clear; Color Urine Yellow; Glucose Urine UA Negative (Negative); Leukocyte Esterase Urine Negative (Negative); Nitrite Urine Negative (Negative); Specific Gravity - Urine 1.015 (1.005-1.025); UMIC TRIGGER UACC YES; Urine Blood Negative (Negative); Urine Ketones Negative (Negative); Urine Protein 100 (2+) mg/dL (Neg-Trace)
[2022-07-27 12:22] LABS: Bacteria Urine None Seen (None Seen); Hyaline Casts Urine 0-2 /LPF (0-2); RBC Urine 0-2 /HPF (0-2); Squamous Epithelial Cell Urine 0-2 /HPF (0-2); WBC Urine 0-5 /HPF (0-5)
[2022-07-27 12:33] LABS: Estimated Average Glucose 154 mg/dL
[2022-07-27 13:04] LABS: Alanine Aminotransferase 32 U/L (0-40); Albumin Level 4.3 g/dL (3.5-5.0); Alkaline Phosphatase 57 U/L (39-117); Anion Gap 12 (12-20); Aspartate Amino Transferase 15 U/L (5-37); Bilirubin Total 0.7 mg/dL (0.0-1.0); Blood Urea Nitrogen 16 mg/dL (9-16); Calcium 9.3 mg/dL (8.4-10.2); Carbon Dioxide 29 mmol/L (22-29); Chloride 104 mmol/L (96-108); Cholesterol 160 mg/dL; Estimated Glomerular Filt Rate 59; Glucose Fasting 172 mg/dL (60-99); HDL Cholesterol 34 mg/dL; LDL Cholesterol Calculated 103 mg/dl; Potassium 5.2 mmol/L (3.3-5.1); Sodium 140 mmol/L (135-145); TSH reflex Free T4 1.12 uIU/mL (0.32-4.0); Total Protein 6.7 g/dL (6.5-8.0); Triglycerides 119 mg/dL
[2022-07-27 13:08] LABS: Albumin Level 4.3 g/dL (3.5-5.0); Anion Gap 12 (12-20); Blood Urea Nitrogen 16 mg/dL (9-16); Calcium 9.3 mg/dL (8.4-10.2); Carbon Dioxide 29 mmol/L (22-29); Chloride 104 mmol/L (96-108); Estimated Glomerular Filt Rate 58; Magnesium 1.6 mg/dL (1.6-2.6); Phosphorus 3.3 mg/dL (2.7-4.5); Potassium 4.8 mmol/L (3.3-5.1); Sodium 140 mmol/L (135-145)
[2022-07-27 13:09] LABS: Creatinine Urine 109.78 mg/dL; Microalbum/Creatinine Ratio Ur 375.2 ug/mg cr; Protein/Creatinine Ratio, Ur 0.52 (<0.2); Total Protein Urine Random 57 mg/dL (<12)
[2022-07-28 10:56] LABS: Calcium (PTHI) 9.4 mg/dL (8.6-10.3); PTHI 56 pg/mL (16-77)
== END 2022-07-27 10:08 | disposition home or self-care (01) ==
LOC: HO.LAB 10:07
PROVIDERS: Absent Provider Internal Medicine Nephrology; PCP Internal Medicine; Visit Provider Internal Medicine
DX: E78.00 Pure hypercholesterolemia, unspecified (principal); E55.9 Vitamin D deficiency, unspecified; E11.22 Type 2 diabetes mellitus with diabetic chronic kidney disease; N18.2 Chronic kidney disease, stage 2 (mild); R80.1 Persistent proteinuria, unspecified
CPT/HCPCS: 36415; 80051; 80053; 80061; 81001; 82040; 82043; 82306; 82310; 82565; 83036; 83735; 83970; 84100; 84156; 84443; 84520; 85025; 87086

== ENCOUNTER 2022-11-23 12:36 | Outpatient (REF) | payer BC, MEDICAID, SELFPAY ==
--- NOTE | ~2022-11-23 | US_ITS ---
EXAMINATION: US RETROPERITONEAL LIMITED (RENAL ONLY) CLINICAL INFORMATION: Diabetic chronic kidney disease. COMPARISON: CT abdomen 12/19/2019 TECHNIQUE: Real-time imaging of the kidneys. FINDINGS: RIGHT KIDNEY: 11.0 x 4.4 x 4.9 cm (SAG x AP x TRV). The kidney is normal in size, contour, and echogenicity. Renal cortical thickness is normal. No calculi or focal parenchymal lesions. No hydronephrosis. LEFT KIDNEY: 13.6 x 5.3 x 5.5 cm (SAG x AP x TRV). The kidney is normal in size, contour, and echogenicity. Renal cortical thickness is normal. No renal calculi or hydronephrosis. Two (2) benign Bosniak class I cysts are noted near the lower pole measuring 1 6.0 and 1.2 Cm. These need no additional imaging or follow-up and have been noted in the past. Incidental note made of marked increased echogenicity of the liver consistent with hepatic steatosis. US/US renal BI IMPRESSION: Normal-appearing kidneys. Incidentally noted hepatic steatosis.
== END 2022-11-23 12:37 | disposition home or self-care (01) ==
LOC: HO.US 12:36
PROVIDERS: PCP Internal Medicine; Visit Provider Internal Medicine Nephrology
DX: N18.31 Chronic kidney disease, stage 3a (principal); N25.0 Renal osteodystrophy; E11.22 Type 2 diabetes mellitus with diabetic chronic kidney disease
CPT/HCPCS: 76775

== ENCOUNTER 2022-12-04 10:07 | Outpatient (REF) | payer BC, MEDICAID, SELFPAY ==
[2022-12-04 10:17] LABS: MANUAL DIFF FLAG NO
[2022-12-04 10:29] LABS: Basophils Percent Auto 0.6 % (0-2); Eosinophils Absolute Auto 0.2 X10*3/uL (0.0-0.4); Eosinophils Percent Auto 3.5 % (0-4); Hematocrit 41.4 % (42.0-52.0); Hemoglobin 13.7 g/dl (14.0-18.0); Imm Gran Abs Auto 0.01 X10*3/uL (0.00-0.03); Imm Gran Pct Auto 0.2 % (0.0-0.4); Lymphocytes Absolute Auto 1.6 X10*3/uL (1.2-4.9); Lymphocytes Percent Auto 30.2 % (20-40); Mean Corpuscular HGB Conc 33.1 g/dl (31.0-36.0); Mean Corpuscular Volume 81.5 fL (80.0-98.0); Mean Platelet Volume 10.2 fL (9.4-12.4); Monocytes Absolute Auto 0.5 X10*3/uL (0.1-1.2); Monocytes Percent Auto 8.8 % (2-11); Neutrophils Percent Auto 56.7 % (45-73); Platelet Count 220 X10*3/uL (160-400); Red Blood Count 5.08 X10*6/uL (4.60-5.80); White Blood Count 5.4 X10*3/uL (4.8-10.8)
[2022-12-04 10:52] LABS: Estimated Average Glucose 186 mg/dL; Hemoglobin A1c % 8.1 %
[2022-12-04 11:19] LABS: Alanine Aminotransferase 32 U/L (0-40); Albumin Level 4.2 g/dL (3.5-5.0); Alkaline Phosphatase 60 U/L (39-117); Anion Gap 15 (12-20); Aspartate Amino Transferase 16 U/L (5-37); Bilirubin Total 0.7 mg/dL (0.0-1.0); Blood Urea Nitrogen 18 mg/dL (9-16); Calcium 9.1 mg/dL (8.4-10.2); Carbon Dioxide 25 mmol/L (22-29); Chloride 105 mmol/L (96-108); Cholesterol 147 mg/dL; Estimated Glomerular Filt Rate 54; Glucose Fasting 160 mg/dL (60-99); HDL Cholesterol 30 mg/dL; LDL Cholesterol Calculated 92 mg/dl; Potassium 4.8 mmol/L (3.3-5.1); Sodium 140 mmol/L (135-145); Total Protein 6.5 g/dL (6.5-8.0); Triglycerides 128 mg/dL
[2022-12-04 11:34] LABS: TSH reflex Free T4 1.69 uIU/mL (0.32-4.0)
[2022-12-04 13:03] LABS: Appearance Urine Clear; Color Urine Yellow; Glucose Urine UA Negative (Negative); Leukocyte Esterase Urine Negative (Negative); Nitrite Urine Negative (Negative); PH 5.5 (5.0-9.0); Specific Gravity - Urine 1.015 (1.005-1.025); UMIC TRIGGER UACC YES; Urine Blood Negative (Negative); Urine Ketones Negative (Negative); Urine Protein 100 (2+) mg/dL (Neg-Trace)
[2022-12-04 13:05] LABS: Bacteria Urine None Seen (None Seen); Hyaline Casts Urine 0-2 /LPF (0-2); RBC Urine 0-2 /HPF (0-2); Squamous Epithelial Cell Urine 0-2 /HPF (0-2); WBC Urine 0-5 /HPF (0-5)
[2022-12-04 13:23] LABS: Creatinine Urine 132.48 mg/dL; Microalbum/Creatinine Ratio Ur 307.2 ug/mg cr
== END 2022-12-04 10:08 | disposition home or self-care (01) ==
LOC: HO.LAB 10:07
PROVIDERS: PCP Internal Medicine; Visit Provider Internal Medicine
DX: E11.9 Type 2 diabetes mellitus without complications (principal); E78.00 Pure hypercholesterolemia, unspecified; I10 Essential (primary) hypertension; E55.9 Vitamin D deficiency, unspecified
CPT/HCPCS: 36415; 80053; 80061; 81001; 81003; 82043; 82306; 83036; 84443; 85025

== ENCOUNTER → 2022-12-08 10:16 | Outpatient (BNVA) | payer BC, MEDICAID, SELFPAY | PROVIDERS: PCP Internal Medicine; Visit Provider Internal Medicine Endocrinology, Diabetes & Metabolism | DX: E11.22 Type 2 diabetes mellitus with diabetic chronic kidney disease (principal); N18.2 Chronic kidney disease, stage 2 (mild); Z79.4 Long term (current) use of insulin | CPT/HCPCS: 82947 ==

== ENCOUNTER → 2022-12-17 12:54 | Outpatient (BNVA) | payer BC, MEDICAID, SELFPAY | PROVIDERS: PCP Internal Medicine; Visit Provider Dietitian, Registered | DX: E11.22 Type 2 diabetes mellitus with diabetic chronic kidney disease (principal); I12.9 Hypertensive chronic kidney disease with stage 1 through stage 4 chronic kidney disease, or unspecified chronic kidney disease; N18.2 Chronic kidney disease, stage 2 (mild); Z79.4 Long term (current) use of insulin | CPT/HCPCS: 97803 ==

== ENCOUNTER 2022-12-28 08:45 | Outpatient (REF) | payer BC, MEDICAID, SELFPAY ==
[2022-12-28 09:59] LABS: Appearance Urine Clear; Color Urine Yellow; Glucose Urine UA >=1000 mg/dL (Negative); Leukocyte Esterase Urine Negative (Negative); Nitrite Urine Negative (Negative); PH 5.5 (5.0-9.0); Specific Gravity - Urine 1.025 (1.005-1.025); UMIC TRIGGER UA YES; Urine Blood Negative (Negative); Urine Ketones Negative (Negative); Urine Protein 30 (1+) mg/dL (Neg-Trace)
[2022-12-28 10:01] LABS: Bacteria Urine None Seen (None Seen); Hyaline Casts Urine 0-2 /LPF (0-2); RBC Urine 0-2 /HPF (0-2); Squamous Epithelial Cell Urine 0-2 /HPF (0-2); WBC Urine 0-5 /HPF (0-5)
[2022-12-28 10:50] LABS: Creatinine Urine 142.78 mg/dL; Protein/Creatinine Ratio, Ur 0.24 (<0.2); Total Protein Urine Random 34 mg/dL (<12)
[2022-12-28 10:53] LABS: Anion Gap 15 (12-20); Blood Urea Nitrogen 18 mg/dL (9-16); Carbon Dioxide 27 mmol/L (22-29); Chloride 107 mmol/L (96-108); Estimated Glomerular Filt Rate 44; Potassium 4.7 mmol/L (3.3-5.1); Sodium 144 mmol/L (135-145)
== END 2022-12-28 08:46 | disposition home or self-care (01) ==
LOC: HO.LAB 08:45
PROVIDERS: PCP Internal Medicine; Visit Provider Internal Medicine Nephrology
DX: I12.9 Hypertensive chronic kidney disease with stage 1 through stage 4 chronic kidney disease, or unspecified chronic kidney disease (principal); E11.22 Type 2 diabetes mellitus with diabetic chronic kidney disease; N18.31 Chronic kidney disease, stage 3a; N25.0 Renal osteodystrophy; R80.1 Persistent proteinuria, unspecified
CPT/HCPCS: 36415; 80051; 81001; 82043; 82310; 82565; 84156; 84520

== ENCOUNTER 2023-04-05 10:29 | Outpatient (AMB) | payer BC, MEDICAID, SELFPAY ==
[2023-04-05 11:07] VITALS: BMI 33.9
--- NOTE | 2023-04-05 11:07 | A.OFFVIS_ITS ---
Intake VS Expanded 04/05/23 11:07 Height 5 ft 6 in Weight 210 lb 5.136 oz BMI 33.9 Intake Visit Reasons: DM2 Allergies albiglutide [From TANZEUM] Allergy (Intermediate, Verified 12/08/22 10:26) NAUSEA & VOMITING, ABD PAIN Sulfa (Sulfonamide Antibiotics) Allergy (Intermediate, Verified 12/08/22 10:26) RASH, hives,shortness of breath empagliflozin [From Jardiance] Adverse Reaction (Intermediate, Verified 12/08/22 10:26) abdominal pain HPI Nutrition Presentation Details Pt presents for MNT for T2DM Pt reports working on reducing portion sizes and working on meal modifications. Reports keeping physically active Today we will review low sodium food concepts Most Recent Diabetes Results: Microalb/Creat Ratio 151.9 ug/mg cr 04/05/23 Cholesterol 144 mg/dL 04/05/23 HDL Cholesterol 35 mg/dL 04/05/23 Triglycerides 170 mg/dL 04/05/23 Creatinine 1.28 mg/dL (0.5-1.4) 04/05/23 Blood Urea Nitrogen 18 mg/dL (9-16) H 04/05/23 Sodium 141 mmol/L (135-145) 04/05/23 Potassium 4.4 mmol/L (3.3-5.1) 04/05/23 Chloride 107 mmol/L (96-108) 04/05/23 Carbon Dioxide 25 mmol/L (22-29) 04/05/23 Calcium 8.9 mg/dL (8.4-10.2) 04/05/23 AST 15 U/L (5-37) 04/05/23 ALT 27 U/L (0-40) 04/05/23 Total Protein 6.7 g/dL (6.5-8.0) 04/05/23 Albumin 4.0 g/dL (3.5-5.0) 04/05/23 [facility] Medical History Anxiety Arthritis B12 deficiency Back pain Benign essential hypertension Bilateral hand pain Bilateral shoulder pain Cardiovascular disease Chronic kidney disease (CKD), stage II (mild) Depression Depression Diabetic nephropathy associated with type 2 diabetes mellitus Diabetic polyneuropathy associated with type 2 diabetes mellitus Essential hypertension GERD without esophagitis Left-sided headache Lumbar spondylosis Migraine Neck pain Obesity (BMI 30-39.9) PTSD (post-traumatic stress disorder) Pure hypercholesterolemia Rectal bleed Tinea pedis Type 2 diabetes mellitus with diabetic chronic kidney disease Vitamin D deficiency Surgical History H/O colonoscopy History of appendectomy History of cardiac cath History of cholecystectomy History of esophagogastroduodenoscopy (EGD) History of fasciotomy Hx of foot surgery S/P right knee arthroscopy S/P TURP (~2015) Family History Father Diabetes Hypertension Heart disease Mother Diabetes Social History Household Members: None Housing: House Are you a primary urgent care nurse practitioner to a significant other at home: No Do you presently have visiting nurse or other home services: No Alcohol intake: current Alcohol intake frequency: holidays/special occasions only Patient Tobacco Use Status: Former Tobacco user e-Cigarette/Vaping Use: Never Used Second Hand Smoke Exposure: Yes service: No Current occupational status: unemployed Cognitive needs: No Hearing needs: No Vision needs: No Assessment & Plan Assessment & Plan (1) Type 2 diabetes mellitus with diabetic chronic kidney disease: Code(s): E11.22 - Type 2 diabetes mellitus with diabetic chronic kidney disease Qualifiers: Diabetes mellitus salvage determiner insulin use: with salvage determiner use Chronic kidney disease stage: stage 2 (mild) Qualified Code(s): E11.22 - Type 2 diabetes mellitus with diabetic chronic kidney disease; N18.2 - Chronic kidney disease, stage 2 (mild); Z79.4 - salvage determiner (current) use of insulin Plan: Educate Pt on 1999 -2199 maty meal plan ? Used wt : 95 kg Est kcal as per MSJ: 2237 - 250= 2087 (40% carb, 30% fat/prot) Est fluid needs: 2375 ml/d (25 ml/kg bw) Rec fiber: increase to 8-10 g per day and gradually increase to as tolerated Rec Na: < 2000 mg /d Educate patient on: (R= Reviewed, V = verbalizes understanding N/R= Needs review N/A= not applicable) * Food sources of carbohydrates and serving adequate serving sizes : R V * Difference between complex carbohydrates and simple carbohydrates, role of fiber: R, V * Differences between fats (MUFA/PUFA/saturated fats, trans fats) and food sources of various fats: R * Food sources of sodium and salt and healthy modifications for heart health and kidney health: R , V * Vitamins and minerals: R * How to interpret food labels: R V * Healthy Plate method concept: R V * Physical activity: benefits and precaution: R , V Patient Instructions: Continue working on following healthy plate method Have a fruit in place of pastries once a day Be mindful of high salt foods, choose lower salt food options discussed Coding Level of Care Code Nutr Indiv Intake (46733) Diagnoses Type 2 diabetes mellitus with diabetic chronic kidney disease E11.22; N18.2; Z79.4 Diabetes mellitus salvage determiner insulin use: with salvage determiner use Chronic kidney disease stage: stage 2 (mild) Time Spent (min) 30
== END 2023-04-05 11:38 | disposition home or self-care (01) ==
PROVIDERS: PCP Internal Medicine; Visit Provider Dietitian, Registered
DX: E11.22 Type 2 diabetes mellitus with diabetic chronic kidney disease (principal); N18.2 Chronic kidney disease, stage 2 (mild); Z79.4 Long term (current) use of insulin

== ENCOUNTER 2023-04-05 10:29 | Outpatient (REF) | payer BC, MEDICARE, MEDICAID, SELFPAY ==
[2023-04-05 11:57] LABS: MANUAL DIFF FLAG NO
[2023-04-05 14:09] LABS: Basophils Percent Auto 0.7 % (0-2); Eosinophils Absolute Auto 0.2 X10*3/uL (0.0-0.4); Hematocrit 42.1 % (42.0-52.0); Hemoglobin 13.5 g/dl (14.0-18.0); Imm Gran Abs Auto 0.01 X10*3/uL (0.00-0.03); Imm Gran Pct Auto 0.2 % (0.0-0.4); Lymphocytes Absolute Auto 1.8 X10*3/uL (1.2-4.9); Lymphocytes Percent Auto 31.5 % (20-40); Mean Corpuscular HGB Conc 32.1 g/dl (31.0-36.0); Mean Corpuscular Hemoglobin 26.1 pg (27.0-33.0); Mean Corpuscular Volume 81.3 fL (80.0-98.0); Mean Platelet Volume 10.5 fL (9.4-12.4); Monocytes Absolute Auto 0.5 X10*3/uL (0.1-1.2); Monocytes Percent Auto 8.8 % (2-11); Neutrophils Absolute Auto 3.1 x10*3/uL (2.0-8.3); Neutrophils Percent Auto 54.8 % (45-73); Platelet Count 252 X10*3/uL (160-400); Red Blood Count 5.18 X10*6/uL (4.60-5.80); Red Cell Distribution Width 13.9 % (11.0-16.0); White Blood Count 5.7 X10*3/uL (4.8-10.8)
[2023-04-05 14:48] LABS: Appearance Urine Clear; Color Urine Yellow; Glucose Urine UA Negative (Negative); Leukocyte Esterase Urine Negative (Negative); Nitrite Urine Negative (Negative); UMIC TRIGGER UACC YES; Urine Blood Negative (Negative); Urine Ketones Negative (Negative); Urine Protein 30 (1+) mg/dL (Neg-Trace)
[2023-04-05 14:51] LABS: Bacteria Urine None Seen (None Seen); Hyaline Casts Urine 0-2 /LPF (0-2); RBC Urine 0-2 /HPF (0-2); Squamous Epithelial Cell Urine 0-2 /HPF (0-2); WBC Urine 0-5 /HPF (0-5)
[2023-04-05 14:53] LABS: Estimated Average Glucose 160 mg/dL; Hemoglobin A1c % 7.2 %
[2023-04-05 15:17] LABS: Alanine Aminotransferase 27 U/L (0-40); Alkaline Phosphatase 65 U/L (39-117); Anion Gap 13 (12-20); Aspartate Amino Transferase 15 U/L (5-37); Bilirubin Total 0.4 mg/dL (0.0-1.0); Blood Urea Nitrogen 18 mg/dL (9-16); Calcium 8.9 mg/dL (8.4-10.2); Carbon Dioxide 25 mmol/L (22-29); Chloride 107 mmol/L (96-108); Cholesterol 144 mg/dL; Estimated Glomerular Filt Rate 57; Glucose Fasting 149 mg/dL (60-99); HDL Cholesterol 35 mg/dL; LDL Cholesterol Calculated 75 mg/dl; Potassium 4.4 mmol/L (3.3-5.1); Sodium 141 mmol/L (135-145); Total Protein 6.7 g/dL (6.5-8.0); Triglycerides 170 mg/dL
[2023-04-05 15:18] LABS: TSH reflex Free T4 1.62 uIU/mL (0.32-4.0); Vitamin D 25-OH Total 43.6 ng/mL (>30)
[2023-04-05 16:51] LABS: Creatinine Urine 121.72 mg/dL; Microalbum/Creatinine Ratio Ur 151.9 ug/mg cr
== END 2023-04-05 10:30 | disposition home or self-care (01) ==
LOC: HO.LAB 10:29
PROVIDERS: PCP Internal Medicine; Visit Provider Dietitian, Registered
DX: E55.9 Vitamin D deficiency, unspecified (principal); E78.00 Pure hypercholesterolemia, unspecified; I12.9 Hypertensive chronic kidney disease with stage 1 through stage 4 chronic kidney disease, or unspecified chronic kidney disease; E11.22 Type 2 diabetes mellitus with diabetic chronic kidney disease; N18.2 Chronic kidney disease, stage 2 (mild); Z79.4 Long term (current) use of insulin
CPT/HCPCS: 36415; 80053; 80061; 81001; 82043; 82306; 83036; 84443; 85025; 97802

== ENCOUNTER 2023-04-09 15:38 | Outpatient (AMB) | payer BC, MEDICAID, SELFPAY ==
[2023-04-09 15:41] VITALS: BP 120/62; PULSE 77; O2SAT 98; BMI 33.1
--- NOTE | 2023-04-09 15:41 | A.OFFPC_ITS ---
Vital Signs 04/09/23 15:41 Height 5 ft 6 in Weight 205 lb BMI 33.1 BP 120/62 Blood Pressure Location Lt brachial Position Sitting Pulse 77 Pulse Source Pulse Oximeter Pulse Oximetry (%) 98 Oxygen Delivery Method Room Air Intake Visit Reasons: HTN, CKD, hyperlipidemia, DM Allergies albiglutide [From TANZEUM] Allergy (Intermediate, Verified 04/09/23 16:00) NAUSEA & VOMITING, ABD PAIN Sulfa (Sulfonamide Antibiotics) Allergy (Intermediate, Verified 04/09/23 16:00) RASH, hives,shortness of breath empagliflozin [From Jardiance] Adverse Reaction (Intermediate, Verified 04/09/23 16:00) abdominal pain Medication List - Last Reconciled 04/09/23 by Aman Jefferson MD acetaminophen 650 mg (2 x 325 mg) PO Q6H PRN 30 days amitriptyline 25 mg PO BEDTIME 90 days amlodipine 2.5 mg PO DAILY 90 days atorvastatin 40 mg PO DAILY 90 days blood sugar diagnostic As directed clotrimazole 1% (Lotrimin AF (clotrimazole)) 1 appl topical BID 4 weeks cyanocobalamin (vitamin B-12) 500 mcg PO DAILY 90 days ergocalciferol (vitamin D2) 1,250 mcg PO QWEEK 90 days fluoxetine (Prozac) 10 mg PO DAILY gabapentin 300 mg PO BEDTIME 90 days losartan 50 mg PO DAILY 90 days metformin ER 1,000 mg (2 x 500 mg) PO BID 90 days Novolog FlexPen U-100 Insulin (insulin aspart U-100) 15-17 units before meals subcut 3 times a day; 90 days NS omeprazole 20 mg PO DAILY 90 days pen needle, diabetic (BD Francesca 2nd Gen Pen Needle) 5 times a day sitagliptin phosphate (Januvia) 100 mg PO DAILY 90 days Tresiba FlexTouch U-200 (insulin degludec) 55 units (0.275 mL) subcut DAILY NS Tobacco use date assessed: 12/03/22 Dental Screening Dental Screen Date: 04/09/23 Did you have a dental visit in the last 12 months?: No Did you have a dental problem in the last 6 months where you did not have access to dental care?: No Was dental information given to patient?: No HPI HTN, CKD, hyperlipidemia, DM HPI Details Patient comes in today for his follow up visit States that he continues to experience diffuse joint pains and low back pain He denies any headaches or dizziness Denies any chest pains, no shortness of breath No nausea /vomiting, no abdominal pain No change in bowel habits noted Had his follow up labs done a few days ago - to discuss his results [facility] Medical History Anxiety Arthritis B12 deficiency Back pain Benign essential hypertension Bilateral hand pain Bilateral shoulder pain Cardiovascular disease Chronic kidney disease (CKD), stage II (mild) Depression Depression Diabetic nephropathy associated with type 2 diabetes mellitus Diabetic polyneuropathy associated with type 2 diabetes mellitus Essential hypertension GERD without esophagitis Left-sided headache Lumbar spondylosis Migraine Neck pain Obesity (BMI 30-39.9) PTSD (post-traumatic stress disorder) Pure hypercholesterolemia Rectal bleed Tinea pedis Type 2 diabetes mellitus with diabetic chronic kidney disease Vitamin D deficiency Surgical History H/O colonoscopy History of appendectomy History of cardiac cath History of cholecystectomy History of esophagogastroduodenoscopy (EGD) History of fasciotomy Hx of foot surgery S/P right knee arthroscopy S/P TURP (~2015) Family History Father Diabetes Hypertension Heart disease Mother Diabetes Social History Household Members: None Housing: House Are you a primary transition of care specialist to a significant other at home: No Do you presently have visiting nurse or other home services: No Alcohol intake: current Alcohol intake frequency: holidays/special occasions only Patient Tobacco Use Status: Former Tobacco user Tobacco use type: Cigarette e-Cigarette/Vaping Use: Never Used Second Hand Smoke Exposure: Yes service: No Current occupational status: unemployed Cognitive needs: No Hearing needs: No Vision needs: No Questionnaire PHQ-9 Over the last 2 weeks, how often have you been bothered by any of the following problems? 1. Little interest or pleasure in doing things: several days 2. Feeling down, depressed, or hopeless: several days 3. Trouble falling or staying asleep, or sleeping too much: several days 4. Feeling tired or having little energy: several days 5. Poor appetite or overeating: several days 6. Feeling bad about yourself - or that you are a failure or have let yourself or your family down: several days 7. Trouble concentrating on things, such as reading the newspaper or watching television: several days 8. Moving or speaking so slowly that other people could have noticed. Or the opposite - being so fidgety or restless that you have been moving around a lot more than usual: not at all 9. Thoughts that you would be better off or of hurting yourself in some way: not at all Total score: 7 Depression Screening Interpretation: Positive Depression Screening Follow-up: Existing condition and In treatment 19844 - PHQ-9 Billing: Yes Source: Developed by Drs. Gerald Rich, Genoveva Steele, Eleazar Campbell and colleagues, with an educational shasta from [employer]. Thrive Questionnaire Date Thrive assessed: 12/03/22 AUDIT C Alcohol Use Questionnaire (AUDIT-C) 1. How often do you have a drink containing alcohol?: Never 3. How often do you have six or more drinks on one occasion?: Never Total Score: 0 Score Reviewed/Action Taken: Yes OSMANI-7 AMB Questionnaire OSMANI-7 Date OSMANI - 7 assessed: 12/03/22 Source: Developed by Drs. Gerald Rich, Genoveva Steele, Eleazar Campbell and colleagues, with an educational shasta from [employer]. Review of Systems Const Denies chills, Reports fatigue (increased lately - not sleeping well due to increased pain), Denies fever(s) and Denies headache(s) ENT Denies dysphagia, Denies dizziness, Denies otalgia, Denies headache(s), Reports neck pain (on and off) and Denies sore throat Card Denies chest pain, Denies palpitations and Denies dyspnea Resp Denies cough and Denies dyspnea GI Denies abdominal pain, Denies constipation, Denies dysphagia, Denies heartburn, Denies diarrhea, Denies nausea, Denies vomiting and Denies hematemesis Denies dysuria, Reports nocturia and Reports urinary frequency Musc Reports back pain (lower back (chronic); recently over the upper back - see HPI), Reports arthralgias (both hands, right knee and now also in both shoulders), Reports neck pain (on and off) and Reports stiffness (both hands) Neuro Denies dizziness and Denies headache(s) Endo Reports fatigue (increased lately - not sleeping well due to increased pain), Reports polydipsia, Reports polyuria and Denies palpitations Physical exam (Primary Care) Vital Signs: Last Vital Signs Pulse 77 04/09/23 15:41 BP 120/62 04/09/23 15:41 Pulse Ox 98 04/09/23 15:41 Oxygen Delivery Method Room Air 04/09/23 15:41 BMI result Body Mass Index 33.1 Tobacco/Smoking Status: Tobacco use Status Tobacco use date assessed 12/03/22 04/09/23 15:42 Patient Tobacco Use Status Former Tobacco user 04/09/23 15:42 Tobacco use type Cigarette 04/09/23 15:42 e-Cigarette/Vaping Use Never Used 04/09/23 15:42 PHQ-9: PHQ-9 Score PHQ-9: Total score 7 04/09/23 16:02 Depression Screening Interpretation: Positive Depression Screening Follow-up: Existing condition and In treatment Thrive Assessment: Date of Thrive Assessment Date Thrive assessed 12/03/22 04/09/23 15:42 Const General: no acute distress and alert HENMT Ears: TM's normal bilaterally and EAC's normal Throat: Yes posterior oropharynx normal and Yes tonsils normal (no TP congestion noted) Neck Neck: Yes no lymphadenopathy and Yes supple Resp Auscultation: clear to auscultation bilaterally, no rales and no wheezes Cardio Rate: regular rate Rhythm: regular rhythm Heart sounds: no murmurs GI Palpation (GI): Soft to palpation and nontender Auscultation: normal bowel sounds General: Yes no CVA tenderness Back/Spine/Pelvis Back: no CVA tenderness Cervical Spine: Cervical spine tenderness Thoracic/Lumbar Spine: No thoracic spinal tenderness and lumbar spinal tenderness Skin Rashes: no rashes Extrem General: Yes no clubbing, cyanosis or edema Right upper extremity: shoulder/upper arm Details: tenderness and normal ROM and Extremity exam: right hand Details: tenderness, normal ROM of fingers and no swelling Left upper extremity: shoulder/upper arm Details: tenderness and normal ROM and hand Details: tenderness, normal ROM of fingers and no swelling Right lower extremity: knee Details: tenderness (mild - symptoms have improved a lot since TKR) Results Reviewed Results Reviewed: Laboratory Tests 04/05/23 04/05/23 04/05/23 11:55 11:55 11:56 WBC 5.7 Hgb 13.5 L Hct 42.1 Plt Count 252 Sodium Potassium Creatinine Estimated GFR Fasting Glucose Hemoglobin A1c % Calcium AST ALT Triglycerides Cholesterol LDL Cholesterol, Calc HDL Cholesterol 25-OH Vitamin D Total TSH Ur Specific Roberts 1.020 Urine Protein 30 (1+) H Urine Glucose (UA) Negative Urine Blood Negative Microalb/Creat Ratio 151.9 04/05/23 04/05/23 11:56 11:56 WBC Hgb Hct Plt Count Sodium 141 Potassium 4.4 Creatinine 1.28 Estimated GFR 57 Fasting Glucose 149 H Hemoglobin A1c % 7.2 Calcium 8.9 AST 15 ALT 27 Triglycerides 170 Cholesterol 144 LDL Cholesterol, Calc 75 HDL Cholesterol 35 25-OH Vitamin D Total 43.6 TSH 1.62 Ur Specific Roberts Urine Protein Urine Glucose (UA) Urine Blood Microalb/Creat Ratio Assessment and Plan Assessment & Plan (1) Type 2 diabetes mellitus with diabetic chronic kidney disease: Code(s): E11.22 - Type 2 diabetes mellitus with diabetic chronic kidney disease Qualifiers: Chronic kidney disease stage: stage 2 (mild) Diabetes mellitus termite treater insulin use: with termite treater use Qualified Code(s): E11.22 - Type 2 diabetes mellitus with diabetic chronic kidney disease; N18.2 - Chronic kidney disease, stage 2 (mild); Z79.4 - care home (current) use of insulin Plan: HgbA1c was at 7.2% on his labs done a few days ago (in-office HgbA1c was at 8.4% a few months ago) - goal is < 7.0% Reinforced diabetic diet Continue Metformin ER 1000 mg BID, Januvia 100 mg QD, Tresiba 55 units once a day and Novolog Flexpen 15 to 17 units 3 times a day with meals Was started on Farxiga 5 mg QD by endocrinology a few months ago but patient stopped taking it due to frequent urethral / penile irritation, especially with urination Follow up with Endocrinology (Dr. Davenport) as scheduled (2) Chronic kidney disease (CKD), stage II (mild): Code(s): N18.2 - Chronic kidney disease, stage 2 (mild) Plan: Stable - will continue to monitor serum GFR and renal function regularly Reminded again the strict control of his BP and DM will go a long way towards preserving his renal function as long as possible Follow up with nephrology (Dr. Monroy) as scheduled Renal US done a few months ago showed (+) normal-appearing kidneys (3) Benign essential hypertension: Code(s): I10 - Essential (primary) hypertension Plan: Reinforced low sodium diet - goal is systolic BP of at least 130 mm or less Continue Losartan 50 mg QD and Amlodipine 2.5 mg QD (4) Pure hypercholesterolemia: Code(s): E78.00 - Pure hypercholesterolemia, unspecified Plan: Results of his labs done a few days ago reviewed and discussed with patient Reinforced low cholesterol diet Continue Atorvastatin 40 mg QD Will recheck his labs in 3 months for follow up (5) GERD without esophagitis: Code(s): K21.9 - Gastro-esophageal reflux disease without esophagitis Plan: Dietary restrictions reinforced Continue Omeprazole 20 mg QD (6) Vitamin D deficiency: Code(s): E55.9 - Vitamin D deficiency, unspecified Plan: Corrected - continue Vitamin D2 35621 units once a week (7) Lumbar spondylosis: Code(s): M47.816 - Spondylosis without myelopathy or radiculopathy, lumbar region Plan: Reinforced activity and weight-lifting restrictions MRI of the lumbar spine done a couple of years ago showed (+) lumbar spondylosis - was following up with [facility] for pain management in the past Continue Tizanidine 4 mg TID PRN and Gabapentin 300 mg QHS Patient used to take Tramadol 50 mg TID PRN but has not refilled this Rx or needed to take this lately Will refer him to pain management for further evaluation and to help see how we can management his chronic pain better (8) Primary osteoarthritis of right knee: Code(s): M17.11 - Unilateral primary osteoarthritis, right knee Plan: S/P right knee arthroplasty in 2019 - knee pain has improved significantly since Follow up with orthopedics as scheduled (9) Bilateral hand pain: Code(s): M79.641 - Pain in right hand; M79.642 - Pain in left hand Plan: X-rays of both hands done last year revealed (+) OA changes in the right hand; left hand x-rays are normal States that his hand pains have not gotten any worse since he quit working last year Encouraged to continue with regular hand exercises to help minimize/manage his hand pain (10) Bilateral shoulder pain: Code(s): M25.511 - Pain in right shoulder; M25.512 - Pain in left shoulder Qualifiers: Chronicity: unspecified Qualified Code(s): M25.511 - Pain in right shoulder; M25.512 - Pain in left shoulder Plan: X-rays of both shoulders done in December 2021 revealed (+) mild OA changes in both shoulders Discussed again option of referring him to orthopedics if his shoulder symptoms get worse (11) PTSD (post-traumatic stress disorder): Code(s): F43.10 - Post-traumatic stress disorder, unspecified Plan: Follow up with psychiatry as scheduled (12) Anxiety: Code(s): F41.9 - Anxiety disorder, unspecified Plan: Is on Fluoxetine 20 mg QD, which helps with both his anxiety and depression (13) Depression: Code(s): F32.9 - Major depressive disorder, single episode, unspecified Plan: Continue Fluoxetine 20 mg QD and Amitriptyline 25 mg Q HS Follow up with psychiatry as scheduled (14) Obesity (BMI 30-39.9): Code(s): E66.9 - Obesity, unspecified Plan: Reinforced diet/exercise as tolerated/lose weight Plan Follow up in 3 months Orders: Orders Comprehensive [place]. Panel Fast 3 Months E78.00 - Pure hypercholesterolemia, unspecified Hemoglobin A1c 3 Months E11.9 - Type 2 diabetes mellitus without complications Lipid Panel 3 Months E78.00 - Pure hypercholesterolemia, unspecified TSH reflex Free T4 3 Months E78.00 - Pure hypercholesterolemia, unspecified Vitamin D 25-OH Total 3 Months E55.9 - Vitamin D deficiency, unspecified Microalbumin, Random (w Creat) 3 Months E11.9 - Type 2 diabetes mellitus without complications Complete Blood Count Auto Diff 3 Months I10 - Essential (primary) hypertension UA CC w/rflx Micro + Cult 3 Months R30.0 - Dysuria Referrals Pain Management Referral M17.11 - Unilateral primary osteoarthritis, right knee, M25.511 - Pain in right shoulder, M25.512 - Pain in left shoulder, M47.816 - Spondylosis without myelopathy or radiculopathy, lumbar region Coding Level of Care Code Est Pt Level 4 (88746) Diagnoses Type 2 diabetes mellitus with diabetic chronic kidney disease E11.22; N18.2; Z79.4 Chronic kidney disease stage: stage 2 (mild) Diabetes mellitus termite treater insulin use: with group home use Chronic kidney disease (CKD), stage II (mild) N18.2 Benign essential hypertension I10 Pure hypercholesterolemia E78.00 GERD without esophagitis K21.9 Vitamin D deficiency E55.9 Lumbar spondylosis M47.816 Primary osteoarthritis of right knee M17.11 Bilateral hand pain M79.641; M79.642 Bilateral shoulder pain M25.511; M25.512 Chronicity: unspecified PTSD (post-traumatic stress disorder) F43.10 Anxiety F41.9 Depression F32.9 Obesity (BMI 30-39.9) E66.9
== END 2023-04-09 16:12 | disposition home or self-care (01) ==
PROVIDERS: PCP Internal Medicine; Visit Provider Internal Medicine
DX: E11.22 Type 2 diabetes mellitus with diabetic chronic kidney disease (principal); N18.2 Chronic kidney disease, stage 2 (mild); Z79.4 Long term (current) use of insulin; I12.9 Hypertensive chronic kidney disease with stage 1 through stage 4 chronic kidney disease, or unspecified chronic kidney disease; E78.00 Pure hypercholesterolemia, unspecified; K21.9 Gastro-esophageal reflux disease without esophagitis; E55.9 Vitamin D deficiency, unspecified; M47.816 Spondylosis without myelopathy or radiculopathy, lumbar region; M17.11 Unilateral primary osteoarthritis, right knee; M79.641 Pain in right hand; M79.642 Pain in left hand; M25.511 Pain in right shoulder
CPT/HCPCS: 99214

== ENCOUNTER 2023-04-13 10:09 | Outpatient (AMB) | payer BC, MEDICARE, MEDICAID, SELFPAY ==
[2023-04-13 10:10] VITALS: BP 118/82; PULSE 89; BMI 33.5
--- NOTE | 2023-04-13 10:10 | A.OFFVIS_ITS ---
Intake Vital Signs 04/13/23 10:10 Height 5 ft 6 in Weight 207 lb 10.807 oz BMI 33.5 BP 118/82 Blood Pressure Location Lt brachial Position Sitting Pulse 89 Pulse Source Pulse Oximeter Intake Visit Reasons: DM Intake Note: Patient present today to follow up on Type 2 Diabetes Mellitus. Last Diabetic Eye exam: 12/28/22 Last Podiatry Visit: 01/07/23 Random Glucose: 170mg/dl HgA1C: 7.2% 04/05/23 Playground Attendant Required: No Information Interpreted: non-clinical & clinical Accompanied by: Self / Same As Patient Allergies albiglutide [From TANZEUM] Allergy (Intermediate, Verified 04/13/23 10:17) NAUSEA & VOMITING, ABD PAIN Sulfa (Sulfonamide Antibiotics) Allergy (Intermediate, Verified 04/13/23 10:17) RASH, hives,shortness of breath empagliflozin [From Jardiance] Adverse Reaction (Intermediate, Verified 04/13/23 10:17) abdominal pain Medication List - Last Reconciled 04/13/23 by Gerald Davenport MD acetaminophen 650 mg (2 x 325 mg) PO Q6H PRN 30 days amitriptyline 25 mg PO BEDTIME 90 days amlodipine 2.5 mg PO DAILY 90 days atorvastatin 40 mg PO DAILY 90 days blood sugar diagnostic As directed clotrimazole 1% (Lotrimin AF (clotrimazole)) 1 appl topical BID 4 weeks cyanocobalamin (vitamin B-12) 500 mcg PO DAILY 90 days ergocalciferol (vitamin D2) 1,250 mcg PO QWEEK 90 days fluoxetine (Prozac) 10 mg PO DAILY gabapentin 300 mg PO BEDTIME 90 days losartan 50 mg PO DAILY 90 days metformin ER 1,000 mg (2 x 500 mg) PO BID 90 days Novolog FlexPen U-100 Insulin (insulin aspart U-100) 15-17 units before meals subcut 3 times a day; 90 days NS omeprazole 20 mg PO DAILY 90 days pen needle, diabetic (BD Francesca 2nd Gen Pen Needle) 5 times a day sitagliptin phosphate (Januvia) 100 mg PO DAILY 90 days Tresiba FlexTouch U-200 (insulin degludec) 55 units (0.275 mL) subcut DAILY NS HPI HPI Comments History of Present Illness Details 62-year-old male, today for follow-up visit, for diabetes management . Dexcom download shows she is using the sensor 64% of the time. Average glucose is 150 with standard deviation 35. 78% range with 21% hyperglycemia and less than 1% hypoglycemia He is Currently on Metformin 1000 mg bid, Januvia 100 mg daily, Tresiba 55 units daily. Humalog 15 -17 before each meals, 5 units with snacks. Farxiga caused yeast infection as well as Jardiance . Had 1 episode of hypoglycemia 1 mo ago He was in Actos which I stop due to lower extremity edema and weight gain. Jardiance stop due to yeast infection. Complications: no retinopathy, + nephropathy, no neuropathy, no CVA, CAD, PVD. Last ophthalmology evaluation: no need for photocoagulation or VEGF therapy. He denies nocturia, he has polyuria and polydipsia, + numbness and tingling's in his hands and feet. Laboratory Tests 06/27/20 07/01/20 08/15/20 09:55 10:25 08:55 Hgb Hct Sodium Potassium BUN Creatinine Estimated GFR Hgb A1c (Clinic) Hemoglobin A1c % 7.5 7.4 7.3 Calcium AST ALT Albumin Triglycerides Cholesterol LDL Cholesterol Di rect LDL Cholesterol, C alc HDL Cholesterol Vitamin B12 25-OH Vitamin D To doug TSH Urine Creatinine Urine Microalbumin Microalb/Creat Rat io 11/01/20 11/01/20 11/01/20 09:12 09:12 09:12 Hgb 13.3 L Hct 43.8 Sodium 143 Potassium 4.6 BUN 23 H D Creatinine 1.25 Estimated GFR 59 Hgb A1c (Clinic) Hemoglobin A1c % 6.9 Calcium 9.4 D AST 14 ALT 32 Albumin 4.4 Triglycerides 128 Cholesterol 140 LDL Cholesterol Di rect LDL Cholesterol, C alc 78 HDL Cholesterol 37 Vitamin B12 25-OH Vitamin D To doug 33.4 TSH 1.94 Urine Creatinine Urine Microalbumin Microalb/Creat Rat io 11/01/20 11/01/20 11/01/20 09:12 09:12 Unknown Hgb Hct Sodium Potassium BUN Creatinine Estimated GFR Hgb A1c (Clinic) Hemoglobin A1c % Calcium AST ALT Albumin Triglycerides Cholesterol LDL Cholesterol Di rect 82 LDL Cholesterol, C alc HDL Cholesterol Vitamin B12 181 L 25-OH Vitamin D To doug TSH Urine Creatinine 129.91 Urine Microalbumin 657.0 Microalb/Creat Rat io 505.7 01/08/21 17:18 Hgb Hct Sodium Potassium BUN Creatinine Estimated GFR Hgb A1c (Clinic) 6.9 H Hemoglobin A1c % Calcium AST ALT Albumin Triglycerides Cholesterol LDL Cholesterol Di rect LDL Cholesterol, C alc HDL Cholesterol Vitamin B12 25-OH Vitamin D To doug TSH Urine Creatinine Urine Microalbumin Microalb/Creat Rat io PFSH Medical History Anxiety Arthritis B12 deficiency Back pain Benign essential hypertension Bilateral hand pain Bilateral shoulder pain Cardiovascular disease Chronic kidney disease (CKD), stage II (mild) Depression Depression Diabetic nephropathy associated with type 2 diabetes mellitus Diabetic polyneuropathy associated with type 2 diabetes mellitus Essential hypertension GERD without esophagitis Left-sided headache Lumbar spondylosis Migraine Neck pain Obesity (BMI 30-39.9) PTSD (post-traumatic stress disorder) Pure hypercholesterolemia Rectal bleed Tinea pedis Type 2 diabetes mellitus with diabetic chronic kidney disease Vitamin D deficiency Surgical History H/O colonoscopy History of appendectomy History of cardiac cath History of cholecystectomy History of esophagogastroduodenoscopy (EGD) History of fasciotomy Hx of foot surgery S/P right knee arthroscopy S/P TURP (~2015) Family History Father Diabetes Hypertension Heart disease Mother Diabetes Social History Household Members: None Housing: House Are you a primary certified social workers in health care to a significant other at home: No Do you presently have visiting nurse or other home services: No Alcohol intake: current Alcohol intake frequency: holidays/special occasions only Patient Tobacco Use Status: Former Tobacco user Tobacco use type: Cigarette e-Cigarette/Vaping Use: Never Used Second Hand Smoke Exposure: Yes service: No Current occupational status: unemployed Cognitive needs: No Hearing needs: No Vision needs: No Physical Exam Vital Signs: Last Vital Signs Pulse 89 04/13/23 10:10 BP 118/82 04/13/23 10:10 BMI result Body Mass Index 33.5 Absence of Cushingoid features. Absence of acromegalic features. Neck exam reveals nl size thyroid about 15 gms. No thyroid nodules palpable. No carotid bruits present. Lungs CTA. Heart S1 S2, Reg R/R. No M/R/ G. Skin exam reveals absence of vitiligo or acanthosis nigricans. Abdominal exam reveals Soft NT/ND with NA BS. No organomegaly present. Neck Other: . Extrem Other: Visual exam of foot performed. No ulcerations or open lesions. No onchomycosis, no callouses.Pulses 2 + distally Sensation intact to monofilament exam. 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 He was reported to be intolerant to SGLT 2 Jardiance with yeast infections Plan is to convert the patient from Dexcom G6 to Dexcom G7. Will also switch the Januvia to Mounjaro 2.5 mg Q weekly and titrate as tolerated. Went over side effects of Mounjaro including but not limited to nausea, vomiting and rare risk of pancreatitis. Told patient to decrease the Tresiba to 30 units and half the dose of Humalog before meals and reported any hypoglycemia for further adjustment of insulin regimen. l Patient has a follow-up appoint with the staff educator. 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
[2023-04-13 10:29] LABS: Glucose, Whole Blood 170 mg/dL (60-115)
== END 2023-04-13 11:06 | disposition home or self-care (01) ==
PROVIDERS: PCP Internal Medicine; Referring Provider Internal Medicine; Visit Provider Internal Medicine Endocrinology, Diabetes & Metabolism
DX: E11.22 Type 2 diabetes mellitus with diabetic chronic kidney disease (principal); N18.2 Chronic kidney disease, stage 2 (mild); Z79.4 Long term (current) use of insulin
CPT/HCPCS: 99214

== ENCOUNTER → 2023-04-13 10:09 | Outpatient (BNVA) | payer BC, MEDICAID, SELFPAY | PROVIDERS: Visit Provider Internal Medicine Endocrinology, Diabetes & Metabolism | DX: E11.22 Type 2 diabetes mellitus with diabetic chronic kidney disease (principal); E11.42 Type 2 diabetes mellitus with diabetic polyneuropathy; E11.21 Type 2 diabetes mellitus with diabetic nephropathy; I12.9 Hypertensive chronic kidney disease with stage 1 through stage 4 chronic kidney disease, or unspecified chronic kidney disease; N18.2 Chronic kidney disease, stage 2 (mild); Z87.891 Personal history of nicotine dependence; Z79.4 Long term (current) use of insulin | CPT/HCPCS: 82947 ==

== ENCOUNTER 2023-05-03 14:12 | Outpatient (AMB) | payer BC, MEDICARE, SELFPAY ==
--- NOTE | 2023-05-03 14:22 | A.OFFVIS_ITS ---
Intake Vital Signs 05/03/23 14:29 Height 5 ft 6 in Weight 201 lb BMI 32.4 BP 108/70 Blood Pressure Location Lt brachial Position Sitting Respiration 18 Pulse 70 Pulse Source Pulse Oximeter Pulse Oximetry (%) 98 Oxygen Delivery Method Room Air Intake Visit Reasons: Spondylosis wo myelopathy or radiculopathy Intake Note: patient comes in for initial visit was referred by pcp Allergies albiglutide [From TANZEUM] Allergy (Intermediate, Verified 05/03/23 14:23) NAUSEA & VOMITING, ABD PAIN Sulfa (Sulfonamide Antibiotics) Allergy (Intermediate, Verified 05/03/23 14:23) RASH, hives,shortness of breath empagliflozin [From Jardiance] Adverse Reaction (Intermediate, Verified 05/03/23 14:23) abdominal pain HPI HPI Comments History of Present Illness Details A swallowed is very pleasant 62 years old gentleman presents in my office with complains on multiple pain generators but most severe his lower back pain. He reports that exacerbation of this pain was about 1 month ago however he was suffering from this pain for long period of time. He reports pain level 8/10. He cannot sleep normally cannot do activities of daily living he can take care of himself but he cannot function normally. 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 Last day of work was June 2021. He is self mobile. Called and weather changes aggravate his pain. Heat applications in oral medications make his pain better. The pain is most severe at night in the morning and less severe during the daytime. In terms of tissue damage he reports his pain as stabbing, lancinating, pinching, cramping, crushing, dull, sore, hurting, aching, heavy sensation. He tried physical therapy to help his pain without success he tried NSAIDs to help his pain without success. He had x-ray done in [facility]. He never had any injections to treat his pain. His past medical history significant for headaches hypertension prostate hypertrophy chest pain angina arrhythmia arthritis gout diabetes kidney disease he denies any surgeries. He denies smoking cigarettes he denies drinking alcohol drinks block off it to 2 3 times a day and he denies recreational drugs. [facility] Medical History Anxiety Arthritis B12 deficiency Back pain Benign essential hypertension Bilateral hand pain Bilateral shoulder pain Cardiovascular disease Chronic kidney disease (CKD), stage II (mild) Depression Depression Diabetic nephropathy associated with type 2 diabetes mellitus Diabetic polyneuropathy associated with type 2 diabetes mellitus Essential hypertension GERD without esophagitis Left-sided headache Lumbar spondylosis Migraine Neck pain Obesity (BMI 30-39.9) PTSD (post-traumatic stress disorder) Pure hypercholesterolemia Rectal bleed Tinea pedis Type 2 diabetes mellitus with diabetic chronic kidney disease Vitamin D deficiency Surgical History H/O colonoscopy History of appendectomy History of cardiac cath History of cholecystectomy History of esophagogastroduodenoscopy (EGD) History of fasciotomy Hx of foot surgery S/P right knee arthroscopy S/P TURP (~2016) Family History Father Diabetes Hypertension Heart disease Mother Diabetes Social History Household Members: None Housing: House Are you a primary summer child caregiver to a significant other at home: No Do you presently have visiting nurse or other home services: No Alcohol intake: current Alcohol intake frequency: holidays/special occasions only Patient Tobacco Use Status: Former Tobacco user Tobacco use type: Cigarette e-Cigarette/Vaping Use: Never Used Second Hand Smoke Exposure: Yes service: No Current occupational status: unemployed Cognitive needs: No Hearing needs: No Vision needs: No Review of Systems Const All systems reviewed & are unremarkable except as noted in HPI and below ENT Reports Normal hearing present Neuro Reports Normal hearing present, Denies Abnormal speech present, Denies confusion and Denies Sensory deficit (Neuro) Psych Denies confusion Physical Exam Vital Signs: Last Vital Signs Pulse 70 05/03/23 14:29 Resp 18 05/03/23 14:29 BP 108/70 05/03/23 14:29 Pulse Ox 98 05/03/23 14:29 Oxygen Delivery Method Room Air 05/03/23 14:29 BMI result Body Mass Index 32.4 Const General: no acute distress; No confusion Nutritional Appearance: obese morbidly obese Orientation/consciousness: patient oriented x3 and No confusion Eyes General: appearance normal, both eyes and all related structures Pupils: Equal, round and reactive pupils present EOM: EOMs intact bilaterally Neck Neck: Yes full ROM Chest Chest palpation & inspection: normal inspection of the chest Resp Effort & Inspection: normal respiratory effort, able to speak in complete sentences, normal respiratory pattern, no audible wheezes and no cough Cardio Jugular venous distension: no JVD GI Inspection: Yes normal to inspection Back/Spine/Pelvis Other: Able to stand on bilateral tiptoes in bilateral heels without difficulty. Able to flex himself forward and backwards. On flexing forward his pain is aggravate d however performs backwards flexing without difficulty. SLR is negative bilaterally. Lassegue tests is negative bilaterally. Pelvis compression test as well as pelvis distruction test, Cole test and 14 finger test are all positive on the left. Neuro General: patient oriented x3, gait normal and No confusion Cranial nerves: Yes CN's II-XII intact bilaterally, Yes Equal, round and reactive pupils present, Yes Normal hearing present and Yes Ability to bilaterally elevate shoulders present Speech: No Abnormal speech present Gait exam (Neuro): Normal gait present Motor exam (neuro): 5/5 motor strength present throughout Sensory Exam: No Sensory deficit (Neuro) Extrem General: No pedal edema Psych Speech and movement: Normal speech and movement present Affect: normal affect Attitude: cooperative Thought process: Normal thought process present Thought content: Normal thought content present Insight: Good insight present (Psych) Judgement: Good judgement present (Psych) Assessment & Plan Assessment & Plan (1) Generalized osteoarthritis: Code(s): M15.9 - Polyosteoarthritis, unspecified (2) Sacroiliitis: Code(s): M46.1 - Sacroiliitis, not elsewhere classified (3) Chronic left sacroiliac joint pain: Code(s): M53.3 - Sacrococcygeal disorders, not elsewhere classified; G89.29 - Other chronic pain (4) Chronic pain syndrome: Code(s): G89.4 - Chronic pain syndrome Plan It looks like that patient is suffering from osteoarthritis. One feature of his osteoarthritis is sacroiliitis on the left. I offered him to perform left diagnostic sacroiliac joint injection. He wants me to perform this procedure under sedation. I explained to him that in any case his sedation better be minimal because the injection is diagnostic and results only in hours of pain relief not days not weeks not months. I explained everything to him he will be scheduled for left diagnostic sacroiliac joint injection and he will be seen in the office after the injection to evaluate the results. Coding Level of Care Code New Pt Level 3 (67328) Diagnoses Generalized osteoarthritis M15.9 Sacroiliitis M46.1 Chronic left sacroiliac joint pain M53.3; G89.29 Chronic pain syndrome G89.4
[2023-05-03 14:29] VITALS: BP 108/70; PULSE 70; RESP 18; O2SAT 98; BMI 32.4
== END 2023-05-03 14:55 | disposition home or self-care (01) ==
PROVIDERS: PCP Internal Medicine; Visit Provider Anesthesiology
DX: M15.9 Polyosteoarthritis, unspecified (principal); M46.1 Sacroiliitis, not elsewhere classified; M53.3 Sacrococcygeal disorders, not elsewhere classified; G89.29 Other chronic pain; G89.4 Chronic pain syndrome
CPT/HCPCS: 99203

== ENCOUNTER → 2023-05-03 14:12 | Outpatient (BNVA) | payer BC, MEDICARE, SELFPAY | PROVIDERS: PCP Internal Medicine; Visit Provider Anesthesiology ==

== ENCOUNTER 2023-05-14 11:14 | Day surgery (SDC) | payer BC, MEDICARE, SELFPAY ==
--- NOTE | 2023-05-13 11:03 | P.CONAN_ITS ---
Documented by User: Renetta Cadet NP 05/13/23 11:05 HPI - Anesthesia Eval Consult details Narrative: 62yo M for Left Diagnostic Sacroiliac Joint Steroid Injection PMFSH Active Problems Active Problems: All Active Problems (Updated 05/03/23 @ 15:04 by John Romano MD) Chronic pain syndrome (Acute) Chronic left sacroiliac joint pain (Acute) Sacroiliitis (Acute) Generalized osteoarthritis (Acute) Upper back pain on right side (Acute) Bilateral shoulder pain (Acute) Bilateral hand pain (Acute) Depression (Acute) Anxiety (Acute) PTSD (post-traumatic stress disorder) (Acute) Tinea pedis (Acute) Type 2 diabetes mellitus with diabetic chronic kidney disease (Acute) Migraine (Acute) Left-sided headache (Acute) B12 deficiency (Acute) Status post right knee replacement (Acute) Pre-op evaluation (Acute) Osteoarthritis of right knee (Acute) Exposure to COVID-19 virus (Acute) Diabetic nephropathy associated with type 2 diabetes mellitus (Acute) Diabetic polyneuropathy associated with type 2 diabetes mellitus (Acute) Obesity (BMI 30-39.9) (Acute) Vitamin D deficiency (Acute) GERD without esophagitis (Acute) Lumbar spondylosis (Acute) Primary osteoarthritis of right knee (Acute) Neck pain (Acute) Pure hypercholesterolemia (Acute) Benign essential hypertension (Acute) 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 (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) Chronic kidney disease (CKD), stage II (mild) (Acute) Diabetes type 2, uncontrolled (Acute) Primary osteoarthritis of right knee (Acute) Past Medical History Medical History Bilateral shoulder pain Bilateral hand pain Depression Anxiety PTSD (post-traumatic stress disorder) Tinea pedis Migraine Left-sided headache B12 deficiency Arthritis Back pain Depression Diabetic nephropathy associated with type 2 diabetes mellitus Diabetic polyneuropathy associated with type 2 diabetes mellitus Obesity (BMI 30-39.9) Vitamin D deficiency GERD without esophagitis Lumbar spondylosis Neck pain Pure hypercholesterolemia Benign essential hypertension Chronic kidney disease (CKD), stage II (mild) Type 2 diabetes mellitus with diabetic chronic kidney disease Essential hypertension Cardiovascular disease Rectal bleed Family History Family History Father Diabetes Hypertension Heart disease Mother Diabetes Surgical History Surgical History Hx of foot surgery History of esophagogastroduodenoscopy (EGD) H/O colonoscopy S/P TURP (~2015) History of fasciotomy History of cardiac cath S/P right knee arthroscopy History of cholecystectomy History of appendectomy Social History Social History Household Members: None Housing: House Are you a primary veterinarian laboratory animal care to a significant other at home: No Do you presently have visiting nurse or other home services: No Alcohol intake: current Alcohol intake frequency: holidays/special occasions only Patient Tobacco Use Status: Former Tobacco user Quit Date: 10 years Tobacco use type: Cigarette e-Cigarette/Vaping Use: Never Used Second Hand Smoke Exposure: Yes service: No Current occupational status: unemployed Cognitive needs: No Hearing needs: No Vision needs: No Meds Allergies Allergy/AdvReac Type Severity Reaction Status Date / Time albiglutide [From TANZEUM] Allergy Intermediate NAUSEA & Verified 05/03/23 14:23 VOMITING, ABD PAIN Sulfa (Sulfonamide Allergy Intermediate RASH, Verified 05/03/23 14:23 Antibiotics) hives,shortness of breath empagliflozin AdvReac Intermediate abdominal Verified 05/03/23 14:23 [From Jardiance] pain Home Medications Medication Instructions Recorded Confirmed Last Taken Type blood sugar diagnostic #10 ea 07/10/20 04/09/23 Unknown History fluoxetine 10 mg capsule (Prozac) 20 mg PO DAILY 03/31/21 05/14/23 Unknown History Exam Exam Date and Time: May 13, 2023 1103 Pertinent Lab Results Pertinent Lab Results: Laboratory Tests 04/05/23 11:56 WBC 5.7 Hgb 13.5 L Hct 42.1 Plt Count 252 Sodium 141 Potassium 4.4 Chloride 107 Carbon Dioxide 25 BUN 18 H Creatinine 1.28 Assessment and Plan Assessment Anesthesia Assessment: Chart Reviewed Documented by User: Citlaly Mittal MD 05/14/23 13:12 PMFSH Active Problems Active Problems: All Active Problems (Updated 05/14/23 @ 11:24 by Citlaly Mittal MD) Chronic pain syndrome (Acute) Chronic left sacroiliac joint pain (Acute) Sacroiliitis (Acute) Generalized osteoarthritis (Acute) Upper back pain on right side (Acute) Bilateral shoulder pain (Acute) Bilateral hand pain (Acute) Depression (Acute) Anxiety (Acute) PTSD (post-traumatic stress disorder) (Acute) Tinea pedis (Acute) Type 2 diabetes mellitus with diabetic chronic kidney disease (Acute) Migraine (Acute) Left-sided headache (Acute) B12 deficiency (Acute) Status post right knee replacement (Acute) Pre-op evaluation (Acute) Osteoarthritis of right knee (Acute) Exposure to COVID-19 virus (Acute) Diabetic nephropathy associated with type 2 diabetes mellitus (Acute) Diabetic polyneuropathy associated with type 2 diabetes mellitus (Acute) Obesity (BMI 30-39.9) (Acute) Vitamin D deficiency (Acute) GERD without esophagitis (Acute) Lumbar spondylosis (Acute) Primary osteoarthritis of right knee (Acute) Neck pain (Acute) Pure hypercholesterolemia (Acute) Benign essential hypertension (Acute) 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 No evaluaion sought. Resolved spontaneously with rest. Review of records show patient has been seen several times over the past few years with chest pain. Baseline EKG RBBB with LAFB (Bifascicular block). Denies any symptoms today. EKG today read as RBBB but probably similar to ild EKGs(No old images available to review. Will proceed Past Medical History Medical History Bilateral shoulder pain Bilateral hand pain Depression Anxiety PTSD (post-traumatic stress disorder) Tinea pedis Migraine Left-sided headache B12 deficiency Arthritis Back pain Depression Diabetic nephropathy associated with type 2 diabetes mellitus Diabetic polyneuropathy associated with type 2 diabetes mellitus Obesity (BMI 30-39.9) Vitamin D deficiency GERD without esophagitis Lumbar spondylosis Neck pain Pure hypercholesterolemia Benign essential hypertension Chronic kidney disease (CKD), stage II (mild) Type 2 diabetes mellitus with diabetic chronic kidney disease Essential hypertension Cardiovascular disease Rectal bleed Family History Family History Father Diabetes Hypertension Heart disease Mother Diabetes Family history of problems with anesthesia: No Surgical History Surgical History Hx of foot surgery History of esophagogastroduodenoscopy (EGD) H/O colonoscopy S/P TURP (~2015) History of fasciotomy History of cardiac cath S/P right knee arthroscopy History of cholecystectomy History of appendectomy History of Problems with Anesthesia: No Social History Social History Household Members: None Housing: House Are you a primary veterinarian laboratory animal care to a significant other at home: No Do you presently have visiting nurse or other home services: No Alcohol intake: current Alcohol intake frequency: holidays/special occasions only Patient Tobacco Use Status: Former Tobacco user Quit Date: 10 years Tobacco use type: Cigarette e-Cigarette/Vaping Use: Never Used Second Hand Smoke Exposure: Yes service: No Current occupational status: unemployed Cognitive needs: No Hearing needs: No Vision needs: No Meds Allergies Allergy/AdvReac Type Severity Reaction Status Date / Time albiglutide [From TANZEUM] Allergy Intermediate NAUSEA & Verified 05/03/23 14:23 VOMITING, ABD PAIN Sulfa (Sulfonamide Allergy Intermediate RASH, Verified 05/03/23 14:23 Antibiotics) hives,shortness of breath empagliflozin AdvReac Intermediate abdominal Verified 05/03/23 14:23 [From Jardiance] pain Home Medications Medication Instructions Recorded Confirmed Last Taken Type blood sugar diagnostic #10 ea 07/10/20 04/09/23 Unknown History fluoxetine 10 mg capsule (Prozac) 20 mg PO DAILY 03/31/21 05/14/23 Unknown History Exam Height,Weight and Vital Signs: Height 5 ft 6 in Weight 91.172 kg Vital Signs Temp Pulse Resp BP Pulse Ox O2 Del Method 05/14/23 12:09 97.9 F 85 18 135/93 H 97 Room Air Pertinent Lab Results Pertinent Lab Results: Laboratory Tests 04/05/23 11:56 WBC 5.7 Hgb 13.5 L Hct 42.1 Plt Count 252 Sodium 141 Potassium 4.4 Chloride 107 Carbon Dioxide 25 BUN 18 H Creatinine 1.28 Lab Results 05/14/23 Range/Units 12:12 POC Glucose 150 H (60-115) mg/dL Airway Mallampati Class: III TM Dist: >3cm Neck ROM: Full Loose/Missing/Broken Teeth: No (Denies) Heart: RRR Lungs: CTAB Assessment and Plan Assessment Anesthesia Assessment: Anesthesia Plan Discussed Final Anesthetic Review Family History of Problems with Anesthesia: No History of Problems with Anesthesia: No NPO: Yes ASA Class: III Final Preanesthetic Review: No Changes in Pt Med Stat, Meds/Allgs Chart Reviewed, Consent Obtained/Reviewed and Anes Risks/Benef Reviewed Patient Risk: Intermediate Procedure Risk: Low Assessment/Block/Sedation in SS: Assess/Block/Sedation-SS Anesthetic Plan Anesthetic Plan: MAC: Disposition: Standard PACU
--- NOTE | ~2023-05-14 | FL_ITS ---
EXAMINATION: XR FLUOROSCOPY WITH IMAGES CLINICAL INFORMATION: Left SI joint injection COMPARISON: None available. TECHNIQUE: Fluoroscopy Supervised By: Dr. John Romano. Fluoroscopy Time: 0.1 minutes. Cumulative Dose: 9.72 mGy. DAP: 2.64 Gycm2. Images: 1. FINDINGS: Radiopaque needle projects over the left sacroiliac joint with injection of contrast. FL/FL guidance in OR IMPRESSION: Fluoroscopic guidance for left sacroiliac joint injection.
--- NOTE | 2023-05-14 11:59 | MHC.SHP ---
Pre-Procedural Eval Section A Date of Service: 05/14/23 The patient is an INPATIENT: No Changes since office visit: Yes Patient answered all questions The History & Physical has been completed within 30 days and I have reviewed it.: No Section B Chief Complaint: Sacrococcygeal disorders,Sacroiliitis, Details of Present Illness: as above Relevant Family History (Specify if Yes): No Relevant Social History: None Present Medications: see Short Stay Collaborative assessment Medical History: No relevant PMH History of Previous Operations: No relevant previous surgery Allergies: Allergies Allergy/AdvReac Type Severity Reaction Status Date / Time albiglutide [From TANZEUM] Allergy Intermediate NAUSEA & Verified 05/03/23 14:23 VOMITING, ABD PAIN Sulfa (Sulfonamide Allergy Intermediate RASH, Verified 05/03/23 14:23 Antibiotics) hives,shortness of breath empagliflozin AdvReac Intermediate abdominal Verified 05/03/23 14:23 [From Jardiance] pain Review of Systems Sugical H&P ROS: Negative: Constitution, Cardiovascular, Respiratory, Neurological, Psychiatric, Hem-Onc, Allergic/Immunologic, Gastrointestinal, Genitourinary, Musculoskeletal, Integumentary, Endocrine and Eyes/Ears/Nose/Throat Exam Surgical H&P Exam: Normal: HEENT, Normal: Heart, Normal: Lungs, Normal: Extremities, Normal: Abdomen, Normal: Skin and Normal: Neurological Plan Diagnosis/Plan: Unchanged I have reviewed the history and physical and performed a pertinent physical examination on my patient. No changes have occurred unless specified. Time Spent With Patient Time: Total time managing care of this patient today ____ minutes.
--- NOTE | 2023-05-14 12:01 | ECG_ITS ---
Test Reason : Chest pain Blood Pressure : / mmHG Vent. Rate : 083 BPM Atrial Rate : 083 BPM P-R Int : 144 ms QRS Dur : 158 ms QT Int : 398 ms P-R-T Axes : 051 -80 023 degrees QTc Int : 467 ms Normal sinus rhythm Left axis deviation Right bundle branch block Abnormal ECG When compared with ECG of 15-AUG-2020 08:55, No significant change was found Referred By: Abe Nash Electronically Signed By:KIA ABBOTT
[2023-05-14 12:05] VITALS: BMI 32.4
[2023-05-14 12:09] VITALS: BP 135/93; PULSE 85; RESP 18; TEMP 36.6; O2SAT 97
[2023-05-14 12:15] LABS: Glucose, Whole Blood 150 mg/dL (60-115)
[2023-05-14] MEDS: Lactated Ringers 1,000 ML 100 ML IVCONT (12:34)
--- NOTE | 2023-05-14 12:36 | PC.NURSE ---
pt stated one week and a half ago he had chest pressure like a heavy rock on my chest in store with his partner with sob, refused hospital 911 lasting 1-1/2 hour relieved with rest. notified dr. griffith and dr. kenney, ekg ordered. and taken.
--- NOTE | 2023-05-14 12:48 | PC.NURSE ---
ekg reviewed by Dr. Mittal, camparison to previous tele strip (no ekg image available). proceeding with case.
--- NOTE | 2023-05-14 13:19 | P.BOP_ITS ---
Brief Operative Note Date of Service: 05/14/23 Pre-op diagnosis: Sacroiliitis Post-op diagnosis: same Procedure: diagnostic left sacroiliac joint injection Surgeon: John Romano MD Anesthesia: MAC Was an Dining Room Maid used for this Procedure?: No Estimated blood loss (mL): 0 Condition: stable Disposition: PACU
[2023-05-14 13:21] VITALS: BP 102/71; PULSE 80; RESP 16; TEMP 36.7; O2SAT 98
--- NOTE | 2023-05-14 13:21 | W.PM.OPN ---
Operative Note Operative Note Date of Service: 05/14/23 Narrative: Left diagnostic sacroiliac joint injection Informed consent was explained thoroughly to the patient.? All questions about benefits and risks for the procedure were answered. Patient came to the operating room and was positioned prone on the operating table with the pillow under her pelvis. [employer] [place] [employer] monitors were applied and patient was sedated. ? Time out was performed delineating name and of the patient, site and side of the procedure, nature of the procedure and potential patient?s risks. The lower back of the patient and upper buttocks was prepped with ChloraPrep prepped and draped with sterile utility drapes.? C-arm was brought over the operating field and square picture of patient's pelvis was demonstrated on the screen.? For the left joint tilting C-arm contralateral to the site of the joint the posterior joint silhouette was delineated on the screen. S kin projection of the joint was chosen as a target of the injection and it was injected ?slightly medial to the location of the joint with 25 gauge needle using local lidocaine 2% without epinephrine. After that 22 gauge 3 and 1/2 inch needle was driven to the joint silhouette in tunnel vision fashion.? When needle entered the joint capsule injection of the contrast was performed demonstrating intra-articular spread of the contrast.? After that 4 cc. of ropivacaine 0.5% was injected into the joint. Upon completion of the injections the needle was removed and sterile dressing was applied.? Patient tolerated procedure fairly well.
[2023-05-14 13:25] VITALS: BP 110/78; PULSE 77; RESP 16; O2SAT 98
[2023-05-14 13:30] VITALS: BP 110/76; PULSE 76; RESP 16; O2SAT 98
[2023-05-14 13:35] VITALS: BP 117/78; PULSE 78; RESP 16; O2SAT 98
[2023-05-14 13:50] VITALS: BP 130/83; PULSE 73; RESP 16; TEMP 36.4; O2SAT 98
== END 2023-05-14 14:30 | disposition home or self-care (01) ==
PROVIDERS: PCP Internal Medicine; Visit Provider Anesthesiology
PROC: 3E0U33Z Introduction of Anti-inflammatory into Joints, Percutaneous Approach (ICD-10-PCS; CPT 27096; principal; 2023-05-14 13:10)
DX: M46.1 Sacroiliitis, not elsewhere classified (principal); M53.3 Sacrococcygeal disorders, not elsewhere classified; G89.4 Chronic pain syndrome; M15.9 Polyosteoarthritis, unspecified; M47.816 Spondylosis without myelopathy or radiculopathy, lumbar region; G43.909 Migraine, unspecified, not intractable, without status migrainosus; E11.22 Type 2 diabetes mellitus with diabetic chronic kidney disease; I12.9 Hypertensive chronic kidney disease with stage 1 through stage 4 chronic kidney disease, or unspecified chronic kidney disease; N18.2 Chronic kidney disease, stage 2 (mild); Z87.891 Personal history of nicotine dependence; Z79.899 Other long term (current) drug therapy; Z88.2 Allergy status to sulfonamides; Z88.8 Allergy status to other drugs, medicaments and biological substances
CPT/HCPCS: G0260; 82947; 93005; J2795; Q9967

== ENCOUNTER 2023-05-17 09:32 | Outpatient (AMB) | payer BC, MEDICARE, SELFPAY ==
--- NOTE | 2023-05-17 09:35 | A.OFFVIS_ITS ---
Intake Vital Signs 05/17/23 09:42 Height 5 ft 6 in Weight 203 lb 8 oz BMI 32.8 BP 141/95 H Blood Pressure Location Rt brachial Position Sitting Pulse 73 Pulse Source Pulse Oximeter Pulse Oximetry (%) 96 Oxygen Delivery Method Room Air Intake Visit Reasons: s/p L. Dx SIJ Inj 05/14/23 Allergies albiglutide [From TANZEUM] Allergy (Intermediate, Verified 05/17/23 09:47) NAUSEA & VOMITING, ABD PAIN Sulfa (Sulfonamide Antibiotics) Allergy (Intermediate, Verified 05/17/23 09:47) RASH, hives,shortness of breath empagliflozin [From Jardiance] Adverse Reaction (Intermediate, Verified 05/17/23 09:47) abdominal pain Medication List - Last Reconciled 05/17/23 by Princess Parsons RN acetaminophen 650 mg (2 x 325 mg) PO Q6H PRN 30 days amitriptyline 25 mg PO BEDTIME 90 days amlodipine 2.5 mg PO DAILY 90 days atorvastatin 40 mg PO DAILY 90 days blood sugar diagnostic As directed blood-glucose sensor ([employer] G7 Sensor device) As directed change every 10 days bupropion HCl 100 mg PO QAM carvedilol 3.125 mg PO BID clotrimazole 1% (Lotrimin AF (clotrimazole)) 1 appl topical BID 4 weeks cyanocobalamin (vitamin B-12) 500 mcg PO DAILY 90 days ergocalciferol (vitamin D2) 1,250 mcg PO QWEEK 90 days fluoxetine (Prozac) 20 mg PO DAILY fluoxetine 40 mg PO QAM gabapentin 300 mg PO BEDTIME 90 days losartan 50 mg PO DAILY 90 days losartan 100 mg PO DAILY metformin ER 1,000 mg (2 x 500 mg) PO BID 90 days Novolog FlexPen U-100 Insulin (insulin aspart U-100) 15-17 units before meals subcut 3 times a day; 90 days NS omeprazole 20 mg PO DAILY 90 days pen needle, diabetic (BD Francesca 2nd Gen Pen Needle) 5 times a day sitagliptin phosphate (Januvia) 100 mg PO DAILY 90 days Tresiba FlexTouch U-200 (insulin degludec) 55 units (0.275 mL) subcut DAILY NS HPI HPI Comments History of Present Illness Details James is in my office today to discuss the results of left diagnostic sacroiliac joint injection. Response of this injection was atypical. He reported no pain improvement for the 1st 9 hours after the procedure with pain ranging from 6-10 out of 10. However he noticed on next morning after the procedure that the pain became much better it decreased to 4 to 5/10 in the morning and got close to 2/10 in the afternoon of the next day. He still enjoys 4 days after the procedure significant pain improvement 2/10 with better mobility better activities of daily living better social interactions. This patient is well established diabetic and he has blood sugar machine at home as well as he uses short-acting and long-acting insulin. Therefore sacroiliac steroid injection might be a good initial way to treat the pain of this patient. He understood the reaction of the steroids which could be given to him with therapeutic sacroiliac joint injection. He also states that his pain is very good at this moment. He wants to give us a call when pain will become worse and we will schedule him for therapeutic left sacroiliac joint injection. Prior: complains on multiple pain generators but most severe his lower back pain. He reports that exacerbation of this pain was about 1 month ago however he was suffering from this pain for long period of time. He reports pain level 8/10. Heat applications in oral medications make his pain minimally better. He is taking NSAIDs for the moderate pain control. He tried physical therapy to help his pain without success he tried NSAIDs to help his pain without success. He had x-ray done in [facility]. He never had any injections to treat his pain. His past medical history significant for headaches hypertension prostate hypertrophy chest pain angina arrhythmia arthritis gout diabetes kidney disease he denies any surgeries. He denies smoking cigarettes he denies drinking alcohol drinks block off it to 2 3 times a day and he denies recreational drugs. [facility] Medical History Bilateral shoulder pain Bilateral hand pain Depression Anxiety PTSD (post-traumatic stress disorder) Tinea pedis Migraine Left-sided headache B12 deficiency Arthritis Back pain Depression Diabetic nephropathy associated with type 2 diabetes mellitus Diabetic polyneuropathy associated with type 2 diabetes mellitus Obesity (BMI 30-39.9) Vitamin D deficiency GERD without esophagitis Lumbar spondylosis Neck pain Pure hypercholesterolemia Benign essential hypertension Chronic kidney disease (CKD), stage II (mild) Type 2 diabetes mellitus with diabetic chronic kidney disease Essential hypertension Cardiovascular disease Rectal bleed Surgical History Hx of foot surgery History of esophagogastroduodenoscopy (EGD) H/O colonoscopy S/P TURP (~2016) History of fasciotomy History of cardiac cath S/P right knee arthroscopy History of cholecystectomy History of appendectomy Family History Father Diabetes Hypertension Heart disease Mother Diabetes Social History Household Members: None Housing: House Are you a primary urgent care to a significant other at home: No Do you presently have visiting nurse or other home services: No Alcohol intake: current Alcohol intake frequency: holidays/special occasions only Patient Tobacco Use Status: Former Tobacco user Quit Date: 10 years Tobacco use type: Cigarette e-Cigarette/Vaping Use: Never Used Second Hand Smoke Exposure: Yes service: No Current occupational status: unemployed Cognitive needs: No Hearing needs: No Vision needs: No Review of Systems Const All systems reviewed & are unremarkable except as noted in HPI and below ENT Reports Normal hearing present Neuro Reports Normal hearing present, Denies Abnormal speech present, Denies confusion and Denies Sensory deficit (Neuro) Psych Denies confusion Physical Exam Vital Signs: Last Vital Signs Pulse 73 05/17/23 09:42 BP 141/95 H 05/17/23 09:42 Pulse Ox 96 05/17/23 09:42 Oxygen Delivery Method Room Air 05/17/23 09:42 BMI result Body Mass Index 32.8 Const General: no acute distress; No confusion Nutritional Appearance: obese morbidly obese Orientation/consciousness: patient oriented x3 and No confusion Eyes General: appearance normal, both eyes and all related structures Pupils: Equal, round and reactive pupils present EOM: EOMs intact bilaterally Neck Neck: Yes full ROM Chest Chest palpation & inspection: normal inspection of the chest Resp Effort & Inspection: normal respiratory effort, able to speak in complete sentences, normal respiratory pattern, no audible wheezes and no cough Cardio Jugular venous distension: no JVD GI Inspection: Yes normal to inspection Back/Spine/Pelvis Other: Able to stand on bilateral tiptoes in bilateral heels without difficulty. Able to flex himself forward and backwards. On flexing forward his pain is aggravated however performs backwards flexing without difficulty. SLR is negative bilaterally. Lassegue tests is negative bilaterally. Pelvis compression test as well as pelvis distruction test, Cole test and 14 finger test are all positive on the left. Neuro General: patient oriented x3, gait normal and No confusion Cranial nerves: Yes CN's II-XII intact bilaterally, Yes Equal, round and reactive pupils present, Yes Normal hearing present and Yes Ability to bilaterally elevate shoulders present Speech: No Abnormal speech present Gait exam (Neuro): Normal gait present Motor exam (neuro): 5/5 motor strength present throughout Sensory Exam: No Sensory deficit (Neuro) Extrem General: No pedal edema Psych Speech and movement: Normal speech and movement present Affect: normal affect Attitude: cooperative Thought process: Normal thought process present Thought content: Normal thought content present Insight: Good insight present (Psych) Judgement: Good judgement present (Psych) Assessment & Plan Assessment & Plan (1) Generalized osteoarthritis: Code(s): M15.9 - Polyosteoarthritis, unspecified (2) Sacroiliitis: Code(s): M46.1 - Sacroiliitis, not elsewhere classified (3) Chronic left sacroiliac joint pain: Code(s): M53.3 - Sacrococcygeal disorders, not elsewhere classified; G89.29 - Other chronic pain (4) Chronic pain syndrome: Code(s): G89.4 - Chronic pain syndrome Plan It looks like that patient is suffering from osteoarthritis. One feature of his osteoarthritis is sacroiliitis on the left. Left diagnostic sacroiliac joint injection resulted in very atypical response. He reported pain aggravation after the procedure. He could not say for sure if this pain aggravation could have been related to the discomfort secondary to injection itself. Nevertheless on the day 2 after the procedure he enjoyed pain reduction at least 75%. He is well established diabetic and I offered him therapeutic sacroiliac joint injection when his pain will be back. Currently he has significant pain reduction. He understands the need to measure blood sugar after therapeutic injection. He has short-acting insulin at home to cover the increase of blood sugar. When his pain will come back he will give us a call to schedule left therapeutic sacroiliac joint injection. It will be done under sedation. Coding Level of Care Code Est Pt Level 4 (32747) Diagnoses Generalized osteoarthritis M15.9 Sacroiliitis M46.1 Chronic left sacroiliac joint pain M53.3; G89.29 Chronic pain syndrome G89.4
[2023-05-17 09:42] VITALS: BP 141/95; PULSE 73; O2SAT 96; BMI 32.8
== END 2023-05-17 10:29 | disposition home or self-care (01) ==
PROVIDERS: PCP Internal Medicine; Visit Provider Anesthesiology
DX: M15.9 Polyosteoarthritis, unspecified (principal); M46.1 Sacroiliitis, not elsewhere classified; M53.3 Sacrococcygeal disorders, not elsewhere classified; G89.29 Other chronic pain; G89.4 Chronic pain syndrome
CPT/HCPCS: 99214

== ENCOUNTER → 2023-05-17 09:32 | Outpatient (BNVA) | payer BC, MEDICARE, SELFPAY | PROVIDERS: PCP Internal Medicine; Visit Provider Anesthesiology ==

== ENCOUNTER 2023-06-16 10:08 | Outpatient (REF) | payer BC, MEDICARE, SELFPAY | END 2023-06-16 10:09 | disposition home or self-care (01) | LOC: HO.LAB 10:08 | PROVIDERS: PCP Internal Medicine; Visit Provider Internal Medicine | DX: I10 Essential (primary) hypertension (principal); E78.00 Pure hypercholesterolemia, unspecified; E11.9 Type 2 diabetes mellitus without complications; E55.9 Vitamin D deficiency, unspecified | CPT/HCPCS: 36415; 80053; 80061; 81001; 82043; 82306; 82570; 83036; 84443; 85025 ==

== ENCOUNTER 2023-07-06 10:05 | Outpatient (AMB) | payer BC, MEDICAID, SELFPAY ==
--- NOTE | 2023-07-06 10:40 | A.OFFVIS_ITS ---
Intake VS Expanded 07/06/23 10:56 Height 5 ft 6 in Weight 198 lb 13.711 oz BMI 32.1 Intake Visit Reasons: T2DM Allergies albiglutide [From TANZEUM] Allergy (Intermediate, Verified 05/17/23 09:47) NAUSEA & VOMITING, ABD PAIN Sulfa (Sulfonamide Antibiotics) Allergy (Intermediate, Verified 05/17/23 09:47) RASH, hives,shortness of breath empagliflozin [From Jardiance] Adverse Reaction (Intermediate, Verified 05/17/23 09:47) abdominal pain HPI Nutrition Presentation Details Pt presents for MNT f/u for T2DM Pt reports doing well, following diet recommendations A1c 6.8% on 06/2023. Pt denies having hypoglycemia PT reports following healthy plate method and choosing low sodium foods fish:-once/m fruits: 1/d dairy: choosing low fat milk , including cheese 2x/wk, yogurt 0-1/wk fried foods- opting for air fried and reports choosing non breaded items vegetables: mostly starchy veg and salads 2 times/wk physical activity: daily life activities ETOH/SMOKIN: denies Most Recent Diabetes Results: Microalb/Creat Ratio 157.0 ug/mg cr (<30) H 06/16/23 Cholesterol 119 mg/dL (<200) 06/16/23 HDL Cholesterol 35 mg/dL (>40) L 06/16/23 Triglycerides 119 mg/dL (<150) 06/16/23 Creatinine 1.29 mg/dL (0.5-1.4) 06/16/23 Blood Urea Nitrogen 15 mg/dL (9-16) 06/16/23 Sodium 139 mmol/L (135-145) 06/16/23 Potassium 4.5 mmol/L (3.3-5.1) 06/16/23 Chloride 102 mmol/L (96-108) 06/16/23 Carbon Dioxide 27 mmol/L (22-29) 06/16/23 Calcium 9.6 mg/dL (8.4-10.2) 06/16/23 AST 17 U/L (5-37) 06/16/23 ALT 29 U/L (0-40) 06/16/23 Total Protein 6.8 g/dL (6.5-8.0) 06/16/23 Albumin 4.1 g/dL (3.5-5.0) 06/16/23 [facility] Medical History Bilateral shoulder pain Bilateral hand pain Depression Anxiety PTSD (post-traumatic stress disorder) Tinea pedis Migraine Left-sided headache B12 deficiency Arthritis Back pain Depression Diabetic nephropathy associated with type 2 diabetes mellitus Diabetic polyneuropathy associated with type 2 diabetes mellitus Obesity (BMI 30-39.9) Vitamin D deficiency GERD without esophagitis Lumbar spondylosis Neck pain Pure hypercholesterolemia Benign essential hypertension Chronic kidney disease (CKD), stage II (mild) Type 2 diabetes mellitus with diabetic chronic kidney disease Essential hypertension Cardiovascular disease Rectal bleed Surgical History Hx of foot surgery History of esophagogastroduodenoscopy (EGD) H/O colonoscopy S/P TURP (~2015) History of fasciotomy History of cardiac cath S/P right knee arthroscopy History of cholecystectomy History of appendectomy Family History Father Diabetes Hypertension Heart disease Mother Diabetes Social History Household Members: None Housing: House Are you a primary personal care service provider to a significant other at home: No Do you presently have visiting nurse or other home services: No Alcohol intake: current Alcohol intake frequency: holidays/special occasions only Patient Tobacco Use Status: Former Tobacco user Quit Date: 10 years Tobacco use type: Cigarette e-Cigarette/Vaping Use: Never Used Second Hand Smoke Exposure: Yes service: No Current occupational status: unemployed Cognitive needs: No Hearing needs: No Vision needs: No Assessment & Plan Assessment & Plan (1) Type 2 diabetes mellitus with diabetic chronic kidney disease: Code(s): E11.22 - Type 2 diabetes mellitus with diabetic chronic kidney disease Qualifiers: Chronic kidney disease stage: stage 2 (mild) Diabetes mellitus chcf insulin use: with chcf use Qualified Code(s): E11.22 - Type 2 diabetes mellitus with diabetic chronic kidney disease; N18.2 - Chronic kidney disease, stage 2 (mild); Z79.4 - [facility] (current) use of insulin Plan: Educate Pt on 1999 -2199 maty meal plan ? Used wt : 95 kg Est kcal as per MSJ: 2237 - 250= 2087 (40% carb, 30% fat/prot) Est fluid needs: 2375 ml/d (25 ml/kg bw) Rec fiber: increase to 8-10 g per day and gradually increase to as tolerated Rec Na: < 2000 mg /d Educate patient on: (R= Reviewed, V = verbalizes understanding N/R= Needs review N/A= not applicable) * Food sources of carbohydrates and serving adequate serving sizes : R V * Difference between complex carbohydrates and simple carbohydrates, role of fiber: R, V * Differences between fats (MUFA/PUFA/saturated fats, trans fats) and food sources of various fats: R * Food sources of sodium and salt and healthy modifications for heart health and kidney health: R , V * Vitamins and minerals: R * How to interpret food labels: R V * Healthy Plate method concept: R V * Physical activity: benefits and precaution: R , V Patient Instructions: Continue working on reducing on salt/sodium intake (pastries, salted snacks) - see list of low sodium food concepts choose a fruit in place of chips/cookies/crackers , have a fruit at least twice a day recommend monitoring labs for b12 related to hx of b12 deficiency Coding Level of Care Code Nutr Indiv Subseq (32169) Diagnoses Type 2 diabetes mellitus with stage 2 chronic kidney disease, with long-term current use of insulin E11.22; N18.2; Z79.4 Chronic kidney disease stage: stage 2 (mild) 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
[2023-07-06 10:56] VITALS: BMI 32.1
== END 2023-07-06 13:33 | disposition home or self-care (01) ==
PROVIDERS: PCP Internal Medicine; Visit Provider Dietitian, Registered
DX: E11.22 Type 2 diabetes mellitus with diabetic chronic kidney disease (principal); N18.2 Chronic kidney disease, stage 2 (mild); Z79.4 Long term (current) use of insulin

== ENCOUNTER → 2023-07-06 10:05 | Outpatient (BNVA) | payer BC, MEDICAID, SELFPAY | PROVIDERS: PCP Internal Medicine; Visit Provider Dietitian, Registered | DX: E11.22 Type 2 diabetes mellitus with diabetic chronic kidney disease (principal); N18.2 Chronic kidney disease, stage 2 (mild); Z79.4 Long term (current) use of insulin; Z71.3 Dietary counseling and surveillance | CPT/HCPCS: 97803 ==